=== PATIENT | female | born 1965 | race Caucasian/White ===

== ENCOUNTER 2018-11-16 10:12 | Emergency (ER) | payer BC ==
--- OUTSIDE RECORDS SUMMARY | 2018-11-16 10:18 | XMS REPORT | Continuity of Care Document ---
:1965 External Reference #:[id number] Author Name Yaya Reed M.D. Address [address] [place] [address], [address] [place] [address] Care Team Providers Name Role Phone Yaya Reed M.D. 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 Onset: 07/08/2010 Disorder of skin and/or subcutaneous Yaya Reed M.D. Onset: 2012 tissue Arthralgia of the lower leg Yaya Reed M.D. Onset: 03/12/2013 Cellulitis Yaya Reed M.D. Onset: 04/15/2013 Pulmonary function studies abnormal Yaya Reed M.D. Onset: 2013 Vitamin D deficiency Yaya Reed M.D. Onset: 08/01/2013 Anemia Yaya Reed M.D. Onset: 08/01/2013 Mixed hyperlipidemia Yaya Reed M.D. Onset: 11/06/2013 Iron deficiency anemia Yaya Reed M.D. Onset: 11/06/2013 Asthma without status asthmaticus Yaya Reed M.D. Onset: 11/17/2014 Adult health examination Yaya Reed M.D. Onset: 05/17/2015 Peristomal abscess Yaya Reed M.D. Onset: 05/17/2015 Type II diabetes mellitus uncontrolled Yaya Reed M.D. Onset: 11/17 Mild intermittent asthma Yaya Reed M.D. Onset: 11/17/2016 Mild persistent asthma Yaya Reed M.D. Onset: 03/26/2017 Gastroesophageal reflux disease Yaya Reed M.D. Onset: 09/25/2017 Obstructive sleep apnea syndrome Yaya Reed M.D. 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 Cigarette Use Negative For current cigarette smoker ETOH Use Occasionally consumes alcohol Tobacco Use Start: Unknown End: Unknown Patient is a former smoker Smoking Status Reviewed: 11/13/18 Patient is a former smoker Allergies, Adverse Reactions, Alerts Active Allergies Reaction Severity Comments Date Keflex 08/26/2004 Alleve 08/26/2004 Tape 08/28/2014 Bactrim Severe rash and facial swelling 12/23/2014 Bacitracin Angioedema 12/29/2014 sulfa Anaphylaxis Severe 05/17/2015 Contrast Dye Hives 05/29/2018 Medications Active Medications SIG Qnty Indications Ordering Date Provider Furosemide take one tablet 90tabs Yaya Cuevas 09/27/2018 20mg Tablets by mouth every Sal Reed day Tradjenta by mouth every 90tabs E11.65 Yaya Cuevas 08/28/2018 5mg Tablets day Sal Reed Spiriva Handihaler inhale the 1caps Yaya Cuevas 09/25/2017 18mcg contents of 1 Sal Reed Capsules capsule daily Omeprazole take one capsule 90caps CONSTANCE Corona 05/05/2016 20mg Capsules by mouth every DR day Ferocon Take 2 Capsules 180caps Yaya Cuevas 12/08/2015 Capsules By Mouth Once Sal Reed Daily Epipen 2-Miguel as directed 2units Yaya Cuevas 04/27/2015 0.3mg/0.3ML Sal Reed Solution Auto-Inject Zofran one tab by mouth 60tabs Yaya Cuevas 09/02/2014 8mg Tablets every 8 hours as Sal Reed needed nausea Simvastatin take 1 tablet by 90tabs Yaya Cuevas 05/08/2014 40mg Tablets mouth once daily Sal Reed Valacyclovir HCL take 2 tablets 30tabs Leroy Yusuf, 02/13/2014 1gm by mouth at [facility] M.Bozena Tablets of cold sore and repeat dose in 12 hours take only 2 doses with each outbreak Metformin HCL take two tablets 360tabs Yaya Cuevas 06/06/2013 500mg by mouth twice a Sal Reed Tablets day Baclofen take one tablet 20tabs R25.2 Yaya Cuevas 01/21/2013 10mg Tablets by mouth every Sal Reed day at bedtime Multivitamins 1 PO qd Matthew 08/09/2006 Munira Walker M.D. Tylenal Extra Strenth 2 po qd prn Unknown Tablets Zyflo CR take 1 tablet Unknown 600mg Tablets ER bid 12HR Dulera 1 puff twice a Unknown 200-5mcg/Act day , rinse Aerosol mouth with water after each use Proair HFA 2 puffs qid/prn Unknown 108(90Base) sob or wheeze mcg/Act Aerosol [place] Allergy 1 by mouth every Unknown 180mg day Tablets Ibgard Unknown 90mg Capsules ER History Medications Breo Ellipta 1 inhalation 60units Anne Razo 07/17/2018 - everyday [place], [facility] 11/13/2018 100-25mcg/Inh Aerosol Prednisone 1 tab by mouth 13 3tabs Anne Razo 06/14/2018 - 50mg Tablets hours prior to [place], [employer] 11/13/2018 procedure, then 1 tab by mouth 7 hours prior to procedure, then 1 tab by mouth 1 hour prior to procedure Prednisone 3 tabs po daily qs Yaya Cuevas 05/16/2018 - 20mg Tablets x3 days then 2 Childres, M.D. 06/14/2018 tabs po daily x3 days then 1 tab po daily x3 days then 1/2 tab po qd for 3 days then d/c Levofloxacin 1 by mouth every 5tabs Anne Razo 05/16/2018 - 750mg day x5 days DipAMELIE goetz 07/01/2018 Tablets Nitrofurantoin 1 by mouth twice 14caps Yaya Cuevas 09/27/2017 - Macrocrystal a day Sal Reed 05/16/2018 100mg Capsules Lasix 1 by mouth every 90tabs Yaya Cuevas 09/25/2017 - 20mg Tablets day Sal Reed 09/27/2018 Dulera 2 puff twice a Samp Yaya Cuevas 09/15/2015 - ? Aerosol day Sal Reed 09/24/2017 Cipro 1 by mouth twice 20tabs Yaya Cuevas 05/17/2015 - 500mg Tablets a day x 10 days Sal Reed 09/15/2015 Januvia take 1 tablet by 90tabs E11.65 Yaya Cuevas 05/17/2015 - 100mg Tablets mouth once daily Sal Reed 08/28/2018 Ibuprofen Take 1 Tablet By 90tabs Yaya Cuevas 02/17/2015 - 600mg Tablets Mouth Every 6 Sal Reed 09/15/2015 Hours as Needed For Pain Take With Food Prednisone 60mg po qd x3days qs Yaya Cuevas 12/23/2014 - 10mg Tablets then 40mg po qd Sal Reed 05/16/2015 x3days then 20mg po qd x3days then 10mg po qd x3days then d/c. Levaquin 1 by mouth every 10tabs 682.9 Yaya Cuevas 12/18/2014 - 750mg Tablets day Sal Reed 05/16/2015 Ferocon Take 2 Capsules 60caps Yaya Cuevas 11/09/2014 - Capsules By Mouth Daily Sal Reed 09/15/2015 Nystatin swish and swallow qs Yaya Cuevas 09/09/2014 - 351604Llqt/ML 500,000units 4 Sal Reed 09/15/2015 Suspension times a day for 10 days. dispense 10 day supply Fluconazole 1 by mouth once. 2tabs Yaya Cuevas 09/02/2014 - 150mg May repeat dose Sal Reed 09/15/2015 Tablets if needed after treatment with abx. Levaquin 1 by mouth every 10tabs Yaya Cuevas 08/31/2014 - 750mg Tablets day Sal Reed 05/16/2015 Doxycycline Hyclate 1 by mouth twice 20caps 682.9 Yaya Cuevas 08/28/2014 - a day Sal Reed 05/16/2015 100mg Capsules Bactrim DS 1 by mouth twice 20tabs 682.9 Yaya Cuevas 08/28/2014 - 800-160mg a day Sal Reed 12/23/2014 Tablets Prednisone 40mg po qd x3days qs Yaya Cuevas 08/28/2014 - 10mg Tablets then 30mg po qd Sal Reed 05/16/2015 x3days then 20mg po qd x3days then 10mg po qd x3days then d/c Prednisone 40mg po qd x3days qs Yaya Cuevas 08/12/2014 - 10mg Tablets then 30mg po qd Sal Reed 08/28/2014 x3days then 20mg po qd x3days then 10mg po qd x3days then d/c Lidocaine on for 12 180units Yaya Cuevas 05/08/2014 - 5% Patches hours/off for 12 Sal Reed 05/16/2018 hours apply to each knee Proair HFA 2 puffs qid/prn 1units Yaya Cuevas 05/08/2014 - 108(90Base) sob or wheeze Sal Reed 09/15/2015 mcg/Act Aerosol Nucynta ER 1 and one half 90tabs Kaila Luna, 11/06/2013 - 50mg Tablets tabs by mouth RN, [employer] 05/16/2018 ER 12HR twice a day as needed for pain when due #[id number] Feracon 2 tabs every day 60units Yaya Cuevas 08/25/2013 - OTC Sal Reed 03/15/2016 Simvastatin Take One Tablet 30tabs Pedro Luis Jett, 08/25/2013 - 20mg By Mouth Every R.N., A.N.P. 05/08/2014 Tablets Day Diflucan 1 by mouth every 2tabs Yaya Cuevas 04/22/2013 - 150mg Tablets day Sal Reed 08/01/2013 Augmentin 1 po bid 20tabs Yaya Cuevas 04/18/2013 - Tablets Sal Reed 08/01/2013 Amoxicillin/Clavulana 1 by mouth twice 20tabs 709.9 Yaya Cuevas 03/12/2013 - te Potassium a day Sal Reed 04/15/2013 875-125mg Tablets Ventolin HFA Inhale 2 Puffs 18units 493.90 Yaya Cuevas 07/19/2012 - Four Times Daily Sal Reed 05/08/2014 108(90Base) mcg/Act as Needed Aerosol Doxycycline Hyclate 1 po bid 20caps 707.8 Matthew 05/03/2012 - Sal Walker 01/21/2013 100mg Capsules Albuterol Sulfate inhale the 50units 493.90 Matthew 10/03/2011 - contents of 1 Sal Walker 07/19/2012 (2.5mg/3ML) 0.083% vial via Nebulizer nebulizer four times a day as needed Vitamin D 1 po q wk x 8 8caps 268.9 Matthew 03/28/2011 - 86758Dyjy wks, then repeat Sal Walker 05/23/2011 Capsules lab work 2 wks after finishing. Astepro 1 intranasal bid 2units 465.9 Matthew 03/20/2011 - 0.15% Solution Sal Walker 03/12/2013 Nucynta by mouth three 30tabs 726.19 Matthew 02/06/2011 - 50mg Tablets times a day as Sal Walker 05/03/2012 needed Foltrin 1 by mouth twice 60caps 285.9 Pedro Luis Jett, 12/30/2010 - Capsules a day R.N.,A.N.P. 05/08/2014 Clarithromycin ER 2 po qd 14tabs 465.9 Pedro Luis Jett, 12/29/2010 - 500mg R.N.,A.N.P. 01/05/2011 Tablets ER 24HR Glumetza Take 1 Tablet By 30tabs [facility] 10/27/2010 - 500mg Tablets Mouth Daily Sal Walker 06/06/2013 ER 24HR Zolpidem Tartrate 1 po qhs prn 30tabs 780.52 [facility] 10/05/2010 - 5mg Sal Walker 05/08/2014 Tablets Vitamin D 1 po q wk x 8 8caps [facility] 08/05/2009 - 18151Pcqe wks,then repeat Sal Walker 12/02/2009 Capsules bloodwork Albuterol HFA Inhaler 2 puffs qid prn 1units 493.90 Matthew 07/20/2009 - Sal Walker 05/08/2014 Zithromax Z-Miguel 2 po today then 1 6tabs 461.0 [facility] 03/23/2009 - 250mg po qd Sal Walker 07/20/2009 Tablets Fortamet 1 po qd 30tabs [facility] 07/13/2008 - 500mg Tablets Sal Walker 02/06/2011 ER 24HR Biaxin XL 2 po qd 20tabs Erica AIvan 02/27/2008 - 500mg Tablets Sal Robins 07/09/2008 ER 24HR Phenergan/Codeine 5 cc po q 4 hours 120cc Erica A. 02/27/2008 - 100ml prn cough Sal Robins 07/09/2008 Syrup Vitamin D 1 po q wk x 8 8caps [facility] 11/26/2007 - 44288Knan wks,then repeat Sal Walker 07/20/2009 Capsules bloodwork Calcium/Vitamin-D 1 PO tid [facility] 08/09/2006 - 500MG Sal Walker 11/13/2018 Vitamin-B12 1 PO qd [facility] 08/09/2006 - Sal Walker 02/06/2011 Anusol HC 1 pr bid prn 10units [facility] 01/30/2006 - 25mg Sal Walker 06/13/2007 Suppositor Metformin 1 po bid 60tabs 250.00 [facility] 11/07/2004 - 1,000mg Sal Walker 12/25/2006 Tablets Avandia 1 po qd 30tabs [facility] 11/07/2004 - 4mg Tablets Sal Walker 01/30/2006 Ascensia Breeze 1units 250.00 Pedro Luis Jett, 11/01/2004 - Glucometer R.N.,A.N.P. 02/27/2008 Ascencia Microlet qd Uad 100units 250.00 Pedro Luis Jett, 11/01/2004 - Lancets R.N.,A.N.P. 02/27/2008 Acensia Autodisc Test 1 qd and prn 5units 250.00 Pedro Luis Jett, 11/01/2004 - Strip Disc R.N.,A.N.P. 02/27/2008 Avandamet 1 po bid 60tabs 250.00 Pedro Luis Johnie, 11/01/2004 - 1,000mg;2 mg R.N.,A.N.P. 11/07/2004 Tablets Glucophage 1 po bid 60tabs 250.00 Matthew 10/11/2004 - 1000mg Sal Walker 11/01/2004 Tablets Diflucan 1 po x1 1tabs Matthew 09/01/2004 - 150mg Tablets Sal Walker 10/11/2004 Glucophage 1 po bid 60tabs Matthew 08/26/2004 - 850mg Sal Walker 10/11/2004 Tablets Glucotrol XL 1 po qd 30tabs 250.00 Matthew 08/26/2004 - 5mg Sal Walker 01/30/2006 Tablets Celebrex 1 po qd 90tabs Matthew 08/26/2004 - 200mg Tablets Sal Walker 10/11/2004 Sudafed 2 PO Q6H prn Matthew 08/26/2004 - 30mg Tablets Sal Walkre 11/13/2018 Tylenol 2 Tablets prn Matthew 08/26/2004 - 500mg Tablets Sal Walker 07/20/2009 Tylenol-PM 1 or 2 po hs prn Matthew 08/26/2004 - Sal Walker 12/20/2004 Tylenol Arthritis prn Matthew 08/26/2004 - 650mg Sal Walker 10/03/2011 Caplets Benadryl 1 PO Q 6 HR prn 60caps Unknown - 50mg Capsules 12/25/2006 Mobic 1-2 po qd prn 30tabs Pietropaoli, - 7.5mg Tablets Sal Clinton 08/09/2006 Trinsicon 1 PO qd 30caps Unknown - 12/25/2006 240mg;15McG;110McG;7 Capsules Darvocet-N 100 1 PO Q 4 HRS prn 60tabs Unknown - 100 10/05/2010 Tablets Nysinta Veblen,Canelo - [employer] TECHNICIAN 03/20/2011 Flexeril 1 po tid prn 60tabs Unknown - 10mg Tablets 05/03/2012 Medications Administered in Office Medication SIG Qnty Indications Ordering Provider Date Admin Of Vaccine,One Vaccine Injection/BP Schedule 03/15/2016 Injection Vitamin B12 Injection, NDC Injection/BP Schedule 01/23/2011 18442-188-89, 1 ML Injection Vitamin B12 Injection, NDC Injection/BP Schedule 01/16/2011 11557-161-04, 1 ML Injection Vitamin B12 Injection, NDC Injection/BP Schedule 01/09/2011 09586-167-41, 1 ML Injection Vitamin B12 Injection, NDC Injection/BP Schedule 01/02/2011 76972-546-52, 1 ML Injection Immunizations CPT Code Status Date Vaccine Lot # [id number] Given 03/15/2016 Fluvirin 0.5 ML,[facility] 18959-477-28 [id number] Given 03/15/2016 Fluvirin 0.5 ML,[facility] 04479-326-24 [id number] Vital Signs Date Vital Result Comment 11/13/2018 3:30pm Weight 258.00 lb Height 57.75 inches 4'9.75" BP Systolic 110 mmHg BP Diastolic 68 mmHg Heart Rate 100 /min Respiratory Rate 18 /min BMI (Body Mass Index) 54.4 kg/m2 05/29/2018 3:26pm Weight 258.00 lb Height 57.75 inches 4'9.75" BP Systolic 128 mmHg BP Diastolic 68 mmHg Body Temperature 97.3 F Heart Rate 101 /min O2 % BldC Oximetry 98 % Respiratory Rate 20 /min BMI (Body Mass Index) 54.4 kg/m2 05/16/2018 3:12pm Weight 248.00 lb Height 57.75 inches 4'9.75" BP Systolic 130 mmHg BP Diastolic 88 mmHg Heart Rate 100 /min Respiratory Rate 18 /min BMI (Body Mass Index) 52.3 kg/m2 09/25/2017 2:01pm Weight 251.00 lb Height 57.75 inches 4'9.75" BP Systolic 122 mmHg BP Diastolic 70 mmHg Heart Rate 80 /min Respiratory Rate 18 /min BMI (Body Mass Index) 52.9 kg/m2 05/14/2017 4:03pm Weight 229.00 lb Height 57.75 inches 4'9.75" BP Systolic 136 mmHg BP Diastolic 74 mmHg Heart Rate 76 /min Respiratory Rate 18 /min BMI (Body Mass Index) 48.3 kg/m2 03/26/2017 10:19am Weight 240.00 lb Height 57.75 inches 4'9.75" BP Systolic 120 mmHg BP Diastolic 70 mmHg Heart Rate 76 /min Respiratory Rate 18 /min BMI (Body Mass Index) 50.6 kg/m2 11/17/2016 4:32pm Weight 238.00 lb Height 57.75 inches 4'9.75" BP Systolic 118 mmHg BP Diastolic 70 mmHg Heart Rate 84 /min BMI (Body Mass Index) 50.2 kg/m2 03/15/2016 3:53pm Weight 227.00 lb Height 57.75 inches 4'9.75" BP Systolic 124 mmHg BP Diastolic 70 mmHg Heart Rate 94 /min BMI (Body Mass Index) 47.8 kg/m2 09/15/2015 3:18pm Weight 244.00 lb Height 57.75 inches 4'9.75" BP Systolic 118 mmHg BP Diastolic 74 mmHg Heart Rate 88 /min BMI (Body Mass Index) 51.4 kg/m2 05/17/2015 3:23pm Weight 240.00 lb Height 57.75 inches 4'9.75" BP Systolic 124 mmHg BP Diastolic 78 mmHg Heart Rate 86 /min Respiratory Rate 18 /min BMI (Body Mass Index) 50.6 kg/m2 12/18/2014 11:28am Weight 233.00 lb Height 57.75 inches 4'9.75" BP Systolic 120 mmHg BP Diastolic 76 mmHg Body Temperature 97.7 F Heart Rate 82 /min O2 % BldC Oximetry 98 % Respiratory Rate 18 /min BMI (Body Mass Index) 49.1 kg/m2 11/17/2014 3:24pm Weight 243.00 lb Height 57.75 inches 4'9.75" BP Systolic 132 mmHg BP Diastolic 74 mmHg Heart Rate 98 /min O2 % BldC Oximetry 99 % Respiratory Rate 16 /min BMI (Body Mass Index) 51.2 kg/m2 08/28/2014 1:49pm Weight 242.00 lb Height 57.75 inches 4'9.75" BP Systolic 130 mmHg BP Diastolic 62 mmHg Body Temperature 97.7 F left ear Heart Rate 124 /min O2 % BldC Oximetry 98 % BMI (Body Mass Index) 51.0 kg/m2 05/08/2014 2:26pm Weight 239.00 lb Height 57.75 inches 4'9.75" BP Systolic 126 mmHg BP Diastolic 80 mmHg Heart Rate 82 /min BMI (Body Mass Index) 50.4 kg/m2 11/06/2013 2:28pm Weight 232.00 lb Height 57.75 inches 4'9.75" BP Systolic 116 mmHg BP Diastolic 70 mmHg Heart Rate 80 /min BMI (Body Mass Index) 48.9 kg/m2 08/01/2013 4:30pm Weight 227.00 lb Height 57.75 inches 4'9.75" BP Systolic 118 mmHg BP Diastolic 68 mmHg Heart Rate 82 /min BMI (Body Mass Index) 47.8 kg/m2 04/18/2013 9:08am Weight 238.00 lb Height 57.75 inches 4'9.75" BP Systolic 110 mmHg BP Diastolic 60 mmHg Body Temperature 97.5 F Heart Rate 86 /min BMI (Body Mass Index) 50.2 kg/m2 04/15/2013 11:18am Weight 233.00 lb BP Systolic 118 mmHg BP Diastolic 76 mmHg Body Temperature 97.3 F Heart Rate 88 /min O2 % BldC Oximetry 98 % 03/12/2013 2:29pm Weight 234.00 lb BP Systolic 114 mmHg BP Diastolic 70 mmHg Body Temperature 98.2 F Heart Rate 88 /min 01/21/2013 4:22pm Weight 238.00 lb BP Systolic 150 mmHg BP Diastolic 82 mmHg Heart Rate 88 /min 05/03/2012 3:59pm Weight 244.00 lb Height 57.75 inches 4'9.75" BP Systolic 138 mmHg BP Diastolic 82 mmHg Body Temperature 97.4 F Heart Rate 82 /min O2 % BldC Oximetry 98 % BMI (Body Mass Index) 51.4 kg/m2 10/03/2011 3:22pm Weight 245.00 lb Height 57.75 inches 4'9.75" BP Systolic 122 mmHg BP Diastolic 82 mmHg Heart Rate 96 /min BMI (Body Mass Index) 51.6 kg/m2 03/20/2011 3:52pm Weight 236.00 lb Height 57.75 inches 4'9.75" BP Systolic 124 mmHg BP Diastolic 82 mmHg Heart Rate 68 /min BMI (Body Mass Index) 49.7 kg/m2 02/06/2011 4:28pm Weight 230.00 lb Height 57.75 inches 4'9.75" BP Systolic 130 mmHg BP Diastolic 80 mmHg Heart Rate 80 /min BMI (Body Mass Index) 48.5 kg/m2 12/29/2010 2:52pm Weight 238.00 lb Height 57.75 inches 4'9.75" BP Systolic 132 mmHg BP Diastolic 82 mmHg Heart Rate 86 /min BMI (Body Mass Index) 50.2 kg/m2 10/05/2010 3:55pm Weight 236.00 lb Height 57.75 inches 4'9.75" BP Systolic 130 mmHg BP Diastolic 60 mmHg Heart Rate 72 /min BMI (Body Mass Index) 49.7 kg/m2 07/08/2010 4:24pm Weight 233.00 lb BP Systolic 120 mmHg BP Diastolic 70 mmHg Heart Rate 76 /min 12/02/2009 4:27pm Weight 267.00 lb Height 57.75 inches 4'9.75" BP Systolic 130 mmHg BP Diastolic 80 mmHg Heart Rate 76 /min BMI (Body Mass Index) 56.3 kg/m2 07/20/2009 4:20pm Weight 265.00 lb BP Systolic 140 mmHg BP Diastolic 80 mmHg Heart Rate 76 /min 03/23/2009 4:19pm Weight 264.00 lb BP Systolic 120 mmHg BP Diastolic 80 mmHg Body Temperature 97.4 F Heart Rate 72 /min 11/05/2008 4:05pm Weight 264.00 lb BP Systolic 132 mmHg Large Cuff BP Diastolic 80 mmHg Large Cuff Heart Rate 68 /min 07/09/2008 3:36pm Weight 266.00 lb BP Systolic 142 mmHg BP Diastolic 72 mmHg Heart Rate 80 /min Respiratory Rate 20 /min BMI (Body Mass Index) 9.3 kg/m2 04/08/2008 4:05pm Weight 264.00 lb Height 59 inches 4'11" BP Systolic 150 mmHg BP Diastolic 70 mmHg Heart Rate 80 /min BMI (Body Mass Index) 53.3 kg/m2 02/27/2008 4:05pm Weight 262.00 lb Height 59 inches 4'11" BP Systolic 122 mmHg BP Diastolic 84 mmHg Heart Rate 88 /min BMI (Body Mass Index) 52.9 kg/m2 12/04/2007 4:02pm Weight 266.38 lb Height 59 inches 4'11" BP Systolic 130 mmHg BP Diastolic 90 mmHg Heart Rate 72 /min BMI (Body Mass Index) 53.8 kg/m2 09/04/2007 3:28pm Weight 269.00 lb Height 59 inches 4'11" BP Systolic 120 mmHg BP Diastolic 80 mmHg Heart Rate 84 /min BMI (Body Mass Index) 54.3 kg/m2 06/13/2007 4:11pm Weight 262.00 lb Height 59 inches 4'11" BP Systolic 130 mmHg BP Diastolic 80 mmHg Heart Rate 72 /min BMI (Body Mass Index) 52.9 kg/m2 12/25/2006 4:05pm Weight 259.00 lb Height 59 inches 4'11" BP Systolic 130 mmHg BP Diastolic 80 mmHg Heart Rate 84 /min BMI (Body Mass Index) 52.3 kg/m2 08/09/2006 4:01pm Weight 271.00 lb Height 59 inches 4'11" BP Systolic 138 mmHg BP Diastolic 72 mmHg Heart Rate 86 /min BMI (Body Mass Index) 54.7 kg/m2 05/08/2006 4:05pm Weight 293.00 lb Height 59 inches 4'11" BP Systolic 130 mmHg BP Diastolic 90 mmHg Heart Rate 88 /min BMI (Body Mass Index) 59.2 kg/m2 01/30/2006 3:51pm Weight 317.00 lb Height 59 inches 4'11" BP Systolic 130 mmHg BP Diastolic 80 mmHg Heart Rate 88 /min BMI (Body Mass Index) 64.0 kg/m2 10/30/2005 4:48pm Height 59 inches 4'11" BP Systolic 136 mmHg BP Diastolic 80 mmHg Heart Rate 114 /min O2 % BldC Oximetry 97 % 06/19/2005 11:56am Weight 366.00 lb Height 59 inches 4'11" BP Systolic 150 mmHg BP Diastolic 80 mmHg Heart Rate 88 /min BMI (Body Mass Index) 73.9 kg/m2 03/21/2005 4:16pm Height 59 inches 4'11" BP Systolic 154 mmHg BP Diastolic 88 mmHg Heart Rate 98 /min 12/20/2004 2:51pm Weight 359.00 lb Height 59 inches 4'11" BP Systolic 134 mmHg BP Diastolic 70 mmHg Heart Rate 72 /min BMI (Body Mass Index) 72.5 kg/m2 11/01/2004 3:30pm BP Systolic 134 mmHg BP Diastolic 78 mmHg Heart Rate 84 /min 10/11/2004 4:14pm Weight 350.00 lb BP Systolic 146 mmHg BP Diastolic 80 mmHg Heart Rate 96 /min 08/26/2004 4:01pm Weight 352.00 lb BP Systolic 160 mmHg BP Diastolic 84 mmHg Results Test Date Facility Test Result H/L Range Note CBC 05/16/2018 [facility] WBC 9.0 10^3/uL 4.8-10.[address] [place] [address] [phone] RBC 4.09 10^6/uL Low 4.2-6.1 HGB 12.0 g/dL 12.0-18.0 HCT 37.9 % 37-52 MCV 92.6 fL 80.0-99.9 MCH 29.3 pg 26.0-32.0 MCHC 31.7 g/dL 31.0-36.0 RDW 13.50 % 11.0-15.0 MPV 6.2 fL Low 7.4-10.4 Platelets 410 10^3/uL High 130-400 Auto Diff 05/16/2018 [facility] Lymphocytes % 20.40 % Low 20.5-51.[address] [place] [address] [phone] Monocytes % 7.00 % 1.7-9.3 Granulocyte % 72.6 % 42.2-75.2 Lymphocytes # 1.8 10^3/uL 0.6-4.1 Monocytes # 0.6 10^3/uL 0.0-1.8 Granulocyte # 6.5 10^3/uL 2.0-7.8 Comp. Metabolic 05/16/2018 [facility] Glucose 167.8 mg/dL High 65-[address] [place] [address] [phone] BUN 20.3 mg/dL 7-21 Co2 21.8 mmol/L Low 22-30 Sodium 141 mmol/L 137-145 Potassium 4.9 mmol/L 3.6-5.2 Chloride 105 mmol/L 98-110 Calcium 9.8 mg/dL 9-10.8 Creatinine 0.91 mg/dL 0.52-1.25 eGFR (Female) >60 1 Total Protein 6.88 g/dL 6.3-8.2 Albumin 3.71 g/dL 3.3-4.50 Sgot (Ast) 31.0 U/L 5-40 Alk Phosphatase 100.0 U/L 38-126 Total Bilirubin 0.41 mg/dL 0.2-1.3 SGPT (Alt) 59.0 U/L High 7-56 Anion Gap (Calc) 14.2 7-16 BUN/Crea Ratio 22.3 Ratio 7-25 Globulin (Calc) 3.17 g/dL 2.3-3.5 A/G Ratio (Calc) 1.2 Ratio 1.1-2.2 Lipid Studies 05/16/2018 [facility] Triglycerides 120 mg/dL 0-[address] [address] [phone] Cholesterol 168 mg/dL 120-200 HDL Cholesterol 101.0 mg/dL High 40-60 VLDL (Calc.) 24 mg/dL <31 Cholesterol/HDL 1.66 Ratio <5.00 LDL (Calc.) 43 mg/dL 0-99 2 Laboratory test 05/16/2018 [facility] %A1c 7.7 % High 4.8- 6.0 finding [address] [address] [phone] Lipid Studies 05/14/2017 [facility] Triglycerides 87 mg/dL 0-[address] [address] [phone] Cholesterol 111 mg/dL Low 120-200 HDL Cholesterol 71.0 mg/dL High 40-60 VLDL (Calc.) 17 mg/dL <31 Cholesterol/HDL 1.56 Ratio <5.00 LDL (Calc.) 23 mg/dL 0-99 3 Comp. Metabolic 05/14/2017 [facility] Glucose 122.5 mg/dL High 65-[address] [address] [phone] BUN 20.4 mg/dL 7-21 Co2 21.5 mmol/L Low 22-30 Sodium 140 mmol/L 137-145 Potassium 4.0 mmol/L 3.6-5.2 Chloride 106 mmol/L 98-110 Calcium 8.6 mg/dL Low 9-10.5 Creatinine 0.94 mg/dL 0.52-1.25 eGFR (Female) >60 4 Total Protein 6.05 g/dL Low 6.3-8.2 Albumin 2.54 g/dL Low 3.3-4.50 Sgot (Ast) 11.0 U/L 5-40 Alk Phosphatase 129.0 U/L High 38-126 Total Bilirubin 0.30 mg/dL 0.2-1.3 SGPT (Alt) 17.0 U/L 7-56 Anion Gap (Calc) 12.5 7-16 BUN/Crea Ratio 21.7 Ratio 7-25 Globulin (Calc) 3.51 g/dL High 2.3-3.5 A/G Ratio (Calc) 0.7 Ratio Low 1.1-2.2 CBC 05/14/2017 [facility] WBC 7.9 10^3/uL 4.8-10.[address] [place] [phone] RBC 3.50 10^6/uL Low 4.2-6.1 HGB 10.6 g/dL Low 12.0-18.0 HCT 33.8 % Low 37-52 MCV 96.6 fL 80.0-99.9 MCH 30.3 pg 26.0-32.0 MCHC 31.4 g/dL 31.0-36.0 RDW 12.50 % 11.0-15.0 MPV 6.4 fL Low 7.4-10.4 Platelets 415 10^3/uL High 130-400 Auto Diff 05/14/2017 [facility] Lymphocytes % 33.60 % 20.5- 51.[address] [place] [address] [phone] Monocytes % 13.20 % High 1.7-9.3 Granulocyte % 53.2 % 42.2-75.2 Lymphocytes # 2.7 10^3/uL 0.6-4.1 Monocytes # 1.0 10^3/uL 0.0-1.8 Granulocyte # 4.2 10^3/uL 2.0-7.8 Laboratory test finding 05/14/2017 [facility] %A1c 6.0 % 4.8-6.0 [address] [facility] [place] [address] [place] [address] [phone] CBC W/Auto Differential 11/18/2016 [facility] WBC 7.4 K/uL 4.8-10.8 [address] [place] [address] [phone] RBC 3.80 M/uL Low 4.20-5.40 Hemoglobin 11.7 gm/dL Low 12.0-16.0 Hematocrit 36.0 % 36.0-48.0 MCV 94.8 fL 80.0-100.0 MCHC 32.5 % 30.0-36.5 MCH 30.8 pg 27.0-34.0 RDW 12.8 % 11.0-15.0 Platelet 293 K/uL 130-450 MPV 6.7 fL 6.0-12.0 NE% 59 % 37-80 Ly% 28 % 10-50 Mo% 11 % 0-12 Eo% 1 % <=8 Ba% 1 % <=3 NE# 4.4 K/uL 1.8-8.6 Lymph# 2.1 K/uL 0.5-5.0 Harlan# 0.8 K/uL 0.0-1.3 Eos# 0.0 K/uL 0.0-0.9 Baso# 0.1 K/ul 0.0-0.3 Laboratory test 11/18/2016 [facility] A1c 6.2 % High 4.8- 6.0 finding 17 [place], [place] [id number] [phone] Lipid Panel 11/18/2016 [facility] Cholesterol 133 mg/dL 120-200 17 [place], [place] [id number] [phone] Triglycerides 85 mg/dL 0-149 HDL Cholesterol 76 mg/dL High 40-60 Chol/HDL Ratio 1.8 <=4.4 5 LDL Direct 34 mg/dL 0-99 VLDL Calculated 17 Comprehensive Panel 11/18/2016 [facility] Sodium 142 mmol/L 136-145 17 [place], [place] [id number] [phone] Potassium 4.2 mmol/L 3.5-5.2 Chloride 109 mmol/L High 100-108 Co2 23 mmol/L 21-32 Glucose 118 mg/dL High 70-100 BUN 13 mg/dL 7-21 Creatinine 0.7 mg/dL 0.6-1.3 6 Calcium 8.7 mg/dL 8.5-10.8 GFR >60 T Bili 0.5 mg/dL 0.0-1.2 T Protein 6.2 gm/dL Low 6.4-8.2 Albumin 3.7 gm/dL 3.4-4.8 Alk Phos 87 U/L 40-150 Alt (SGPT) 20 U/L 0-55 Ast (Sgot) 16 U/L 5-37 Laboratory test 03/15/2016 [facility] %A1c 6.6 % High 4.2- 5.8 7 finding 77 [facility] 310 [place], [place] [id number] [phone] Laboratory test 09/11/2015 [facility] A1c 6.7 % High 4.8- 6.0 finding 17 [place] [address] [phone] LP (Lipid) 09/11/2015 [facility] Cholesterol 132 mg/dL 120 -200 17 [place] [address] [phone] Triglycerides 137 mg/dL 0-149 HDL Cholesterol 85 mg/dL High 40-60 Chol/HDL Ratio 1.6 <=4.4 8 LDL Direct 30 mg/dL 0-99 VLDL Calculated 27 CMP 09/11/2015 [facility] Sodium 143 mmol/L 136-145 17 [place] [address] [phone] Potassium 4.2 mmol/L 3.6-5.2 Chloride 104 mmol/L 100-108 Co2 30 mmol/L 21-32 Glucose 119 mg/dL High 70-110 9 BUN 17 mg/dL 7-21 Creatinine 0.7 mg/dL 0.6-1.3 10 Calcium 8.7 mg/dL 8.5-10.8 GFR >60 T Bili 0.3 mg/dL 0.0-1.0 T Protein 6.8 gm/dL 6.4-8.2 Albumin 3.5 gm/dL 3.4-4.8 Alk Phos 94 U/L 50-136 Alt (SGPT) 35 U/L 12-78 Ast (Sgot) 23 U/L 15-37 CMP 05/16/2015 [facility] Sodium 140 mmol/L 136-145 17 [place] [address] [phone] Potassium 4.3 mmol/L 3.6-5.2 Chloride 103 mmol/L 100-108 Co2 28 mmol/L 21-32 Glucose 107 mg/dL 70-110 11 BUN 15 mg/dL 7-21 Creatinine 0.8 mg/dL 0.6-1.3 12 Calcium 8.7 mg/dL 8.5-10.8 GFR >60 T Bili 0.5 mg/dL 0.0-1.0 T Protein 6.6 gm/dL 6.4-8.2 Albumin 3.4 gm/dL 3.4-4.8 Alk Phos 112 U/L 50-136 Alt (SGPT) 29 U/L 12-78 Ast (Sgot) 17 U/L 15-37 LP (Lipid) 05/16/2015 [facility] Cholesterol 125 mg/dL 120 -200 17 [place] [address] [phone] Triglycerides 163 mg/dL High 0-149 HDL Cholesterol 77 mg/dL High 40-60 Chol/HDL Ratio 1.6 <=4.4 13 LDL Direct 33 mg/dL 0-99 VLDL Calculated 33 Laboratory test 05/16/2015 [facility] A1c 7.4 % High 4.8- 6.0 finding 17 [place] [address] [phone] Culture 12/18/2014 [facility] Culture DIRECT EXAM 14 Luyrf-Uwtvbp-Gabg [address] [place] [phone] Isolate 1 Rare Pseudomonas <SEE NOTE> 15 Ceftazidime 2 S Gentamicin <=1 S Ciprofloxacin <=0.25 S Levofloxacin 0.5 S Culture Wound 08/28/2014 [facility] Culture COMMENTS 16 Superficial 17 [place] [address] [phone] Isolate 1 Rare Pseudomonas <SEE NOTE> 17 Ceftazidime <=1 S Gentamicin <=1 S Ciprofloxacin <=0.25 S Levofloxacin 0.25 S Laboratory test 05/08/2014 [facility] %A1c 7.0 % High 4.2- 5.8 18 finding 77 [facility] 310 [place] [address] [phone] Comp. Metabolic 05/08/2014 [facility] Glucose 133.4 High 65- 110 77 [facility] 310 mg/[place] [address] [phone] BUN 15.4 mg/dL 7-21 Co2 22.5 mmol/L 22-30 Sodium 140 mmol/L 137-145 Potassium 4.8 mmol/L 3.6-5.2 Chloride 108 mmol/L 98-110 Calcium 9.1 mg/dL 9-10.5 Creatinine 0.84 mg/dL 0.52-1.25 Total Protein 6.74 g/dL 6.3-8.2 Albumin 3.52 g/dL 3.3-4.50 Sgot (Ast) 20.0 U/L 5-40 Alk Phosphatase 111.0 U/L 38-126 Total Bilirubin 0.23 mg/dL 0.2-1.3 SGPT (Alt) 26.0 U/L 7-56 Anion Gap (Calc) 9.5 7-16 BUN/Crea Ratio 18.3 Ratio 7-25 Globulin (Calc) 3.22 g/dL 2.3-3.5 A/G Ratio (Calc) 1.1 Ratio 1.1-2.2 Lipid Studies 05/08/2014 [facility] Triglycerides 106 mg/dL 0-[address] [address] [phone] Cholesterol 144 mg/dL 120-200 HDL Cholesterol 66.0 mg/dL High 40-60 VLDL (Calc.) 21 mg/dL <31 Cholesterol/HDL 2.18 Ratio <5.00 LDL (Calc.) 57 mg/dL 0-99 19 Laboratory test 05/08/2014 [facility] eGFR (Female) 76 >59 20 finding [address] [address] [phone] 25 Hydroxy Vit D 08/23/2013 [facility] 25 Hydroxy Vit 25 NG/ ML Low 30-95 @ [address] [place] [phone] [id number] VITAMIN D STATUS <SEE NOTE> 21 Folate & B-12 08/23/2013 [facility] Folate >20.0 ng/mL High 3.1-12.[address] [place] [address] [phone] Vitamin B12 632.0 pg/mL 254.0-1,320.0 Laboratory test 08/23/2013 [facility] A1c 7.3 % High 4.8- 6.0 finding 17 [place], [place] 8254829 [phone] Comprehensive Panel 08/23/2013 [facility] Sodium 139 mmol/L 136-145 17 [place], [place] 6762891 [phone] Potassium 4.3 mmol/L 3.6-5.2 Chloride 106 mmol/L 100-108 Co2 25 mmol/L 21-32 Glucose 113 mg/dL High 70-110 Glu Range Header [place] Jacey <SEE NOTE> 22 BUN 21 mg/dL 7-21 Creatinine 0.7 mg/dL 0.6-1.3 Calcium 9.1 mg/dL 8.5-10.8 GFR >60 GFR Ranges Normal Kidney Fu <SEE NOTE> 23 T Bili 0.4 mg/dL 0.0-1.0 T Protein 7.0 gm/dL 6.4-8.2 Albumin 3.7 gm/dL 3.4-4.8 Alk Phos 139 U/L High 50-136 Alt (SGPT) 31 U/L 12-78 Ast (Sgot) 18 U/L 15-37 Lipid Panel 08/23/2013 [facility] Cholesterol 174 mg/dL 120-200 17 [place], [place] 4179889 [phone] Triglycerides 170 mg/dL High 0-149 HDL Cholesterol 84 mg/dL High 40-60 Chol/HDL Ratio 2.1 Chol/HDL Ranges Cholesterol/HDL <SEE NOTE> 24 LDL Direct 65 mg/dL 0-99 VLDL Calculated 34 Iron Saturation 08/23/2013 [facility] Iron 39 g/dL Low 50 -175 17 [place] [address] [phone] Tibc 413 g/dL High 112-346 Iron Saturation 9 % Low 22-55 CBC W/No Diff 08/23/2013 [facility] WBC 7.5 K/uL 4.8-10.8 17 [place], [place] 9271488 [phone] RBC 4.19 M/uL Low 4.20-5.40 Hemoglobin 11.6 gm/dL Low 12.0-16.0 Hematocrit 36.8 % 36.0-48.0 MCV 87.8 fL 80.0-100.0 MCH 27.6 pg 27.0-34.0 MCHC 31.5 % 30.0-36.5 RDW 13.4 % 11.0-15.0 Platelet 373 K/uL 130-450 MPV 6.9 fL 6.0-12.0 Culture 04/18/2013 [facility] Culture Growth 25 Evltp-Nxbgnt-Qwplufjf 17 [facility] Observ[place] [address] <SEE [phone] NOTE> Culture Observations MRSA screen test <SEE NOTE> 26 Direct Exam WBC's or organis <SEE NOTE> 27 CBC 04/18/2013 [facility] WBC 8.9 10^3/uL 4.8-10.[address] [phone] RBC 3.51 10^6/uL Low 4.2-6.1 HGB 10.6 g/dL Low 12.0-18.0 HCT 31.3 % Low 37-52 MCV 89.2 fL 80.0-99.0 MCH 30.2 pg 27.0-31.0 MCHC 33.9 g/dL 33.0-37.0 RDW 14.30 % 11.0-15.0 MPV 6.8 fL Low 7.4-10.4 Platelets 357 10^3/uL 130-400 Laboratory test finding 05/03/2012 [facility] %A1c 7.2 % High 4.2-5.[address] [address] [phone] eGFR (Female) 71 >59 28 Basic Metabolic 05/03/2012 [facility] Glucose 103.6 mg/dL 65-[address] [address] [phone] BUN 12.7 mg/dL 7-21 Co2 18.0 mEq/L Low 22-30 Sodium 140 mEq/L 137-145 Potassium 4.1 mEq/L 3.6-5.0 Chloride 108 mEq/L High 98-107 Calcium 9.7 mg/dL 9-10.5 Creatinine 0.90 mg/dL 0.52-1.25 Anion Gap (Calc) 14.0 7-16 BUN/Crea Ratio 14.1 Ratio 7-25 Culture 05/03/2012 [facility] Direct Exam WBC's or 29 Bbrth-Syxmso-Mjqboagw 17 [place] [address] <SEE NOTE> [phone] Culture Observations MRSA screen test <SEE NOTE> 30 Isolate 1 Few Pseudomonas <SEE NOTE> 31 Ceftazidime 4 S Gentamicin <=1 S Ciprofloxacin <=0.25 S Levofloxacin 0.5 S Comp. Metabolic 10/03/2011 [facility] Glucose 122.4 mg/dL High 65-[address] [phone] BUN 12.2 mg/dL 7-21 Co2 21.1 mEq/L Low 22-30 Sodium 138 mEq/L 137-145 Potassium 4.5 mEq/L 3.6-5.0 Chloride 108 mEq/L High 98-107 Calcium 9.1 mg/dL 9-10.5 Creatinine 0.74 mg/dL 0.52-1.25 Total Protein 6.97 g/dL 6.3-8.2 Albumin 3.59 g/dL 3.3-4.50 Sgot (Ast) 12.0 IU/L 5-40 Alk Phosphatase 96.0 IU/L 38-126 Total Bilirubin 0.16 mg/dL Low 0.2-1.3 SGPT (Alt) 17.0 IU/L 7-56 Anion Gap (Calc) 8.9 7-16 BUN/Crea Ratio 16.5 Ratio 7-25 Globulin (Calc) 3.38 g/dL 2.3-3.5 A/G Ratio (Calc) 1.1 Ratio 1.1-2.2 Laboratory test finding 10/03/2011 [facility] %A1c 7.1 % High 4.2-5.[address] [id number] [phone] eGFR (Female) 89 >59 32 Laboratory test 06/14/2011 [facility] Vitamin D 32 ng/mL 31 -100 finding [address] [place] [address] [address] [place], [place] 7127213 [phone] Laboratory test 03/20/2011 [facility] Vitamin D 30 ng/mL Low 31-100 finding 77 [address] [address] [address] [place], [place] 2154003 [phone] CBC 03/20/2011 [facility] WBC 7.9 4.8-10.8 77 [facility] 310 10^3/[place] [address] [phone] RBC 4.12 10^6/uL Low 4.2-6.1 HGB 10.8 g/dL Low 12.0-18.0 HCT 34.2 % Low 37-52 MCV 83.2 fL 80.0-99.0 MCH 26.2 pg Low 27.0-31.0 MCHC 31.5 g/dL Low 33.0-37.0 RDW 23.80 % High 11.0-15.0 MPV 7.5 fL 7.4-10.4 Platelets 286 10^3/uL 130-400 Comp. Metabolic 03/20/2011 [facility] Glucose 103.9 mg/dL 65-[address] [place] [address] [phone] BUN 13.9 mg/dL 7-21 Co2 20.8 mEq/L Low 22-30 Sodium 137 mEq/L 137-145 Potassium 4.8 mEq/L 3.6-5.0 Chloride 106 mEq/L 98-107 Calcium 8.5 mg/dL Low 9-10.5 Creatinine 0.73 mg/dL 0.52-1.25 Total Protein 6.09 g/dL Low 6.3-8.2 Albumin 3.23 g/dL Low 3.3-4.50 Sgot (Ast) 20.0 IU/L 5-40 Alk Phosphatase 108.0 IU/L 38-126 Total Bilirubin 0.22 mg/dL 0.2-1.3 SGPT (Alt) 23.0 IU/L 7-56 Anion Gap (Calc) 10.2 7-16 BUN/Crea Ratio 19.0 Ratio 7-25 Globulin (Calc) 2.86 g/dL 2.3-3.5 A/G Ratio (Calc) 1.1 Ratio 1.1-2.2 Laboratory test 03/20/2011 [facility] Magnesium 1.9 mg/dL 1.7-2.[address] [place] [address] [phone] eGFR (Female) 91 >59 33 Laboratory test 03/20/2011 [facility] Lab [place] 79.5 pg/ mL High (12-65) 34 finding 17 [facility] PTH, [place] [address] [phone] Basic Metabolic 02/06/2011 [facility] Glucose 109.5 65-110 77 [facility] 310 mg/[place] [address] [phone] BUN 16.5 mg/dL 7-21 Co2 18.8 mEq/L Low 22-30 Sodium 141 mEq/L 137-145 Potassium 4.5 mEq/L 3.6-5.0 Chloride 107 mEq/L 98-107 Calcium 8.6 mg/dL Low 9-10.5 Creatinine 0.81 mg/dL 0.52-1.25 Anion Gap (Calc) 15.2 7-16 BUN/Crea Ratio 20.4 Ratio 7-25 Laboratory test 02/06/2011 [facility] eGFR (Female) 81 >59 35 finding 77 [facility] 310 [place] [address] [phone] Folate & B-12 02/06/2011 [facility] Folate >20.0 High 3.1- 12.[address] [place] [address] ng/[place] [address] [phone] Vitamin B12 995.0 pg/mL 254.0-1,320.0 CBC Diff 02/06/2011 [facility] WBC 9.1 K/uL 4.8-10.[address] [place] [address] [phone] Red Blood Cell 4.22 M/uL 4.20-5.40 Hemoglobin 10.4 gm/dL Low 12.0-16.0 Hematocrit 31.7 % Low 36.0-48.0 MCV 75.3 fL Low 80.0-100.0 MCHC 32.8 % 30.0-36.5 MCH 24.7 pg Low 27.0-34.0 RDW 20.8 % High 11.0-15.0 Platlet Count 545 K/uL High 130-450 MPV 7.9 fL 6.0-12.0 Neutrophil 55 % 37-80 Lymphocyte 35 % 10-50 Monocyte 9 % 0-12 Eosinophil 0 % <=8 Basophil 1 % <=3 Angela# 5.0 K/uL 1.8-8.6 Lymphocyte # 3.2 K/uL 0.5-5.0 Monocyte # 0.8 K/uL 0.0-1.3 Eosinophil # 0.0 K/uL 0.0-0.9 Basophil # 0.1 K.uL 0.0-0.3 Iron Saturation 12/29/2010 [facility] Iron 13 g/dL Low 50 -175 17 [place], [place] [address]100 [phone] Tibc 414 g/dL High 112-346 Iron Saturation 3 % Low 22-55 Folate & B-12 12/29/2010 [facility] Folate >20.0 ng/mL High 3.1-12.4 17 [place] [address] [phone] Vitamin B12 252.0 pg/mL Low 254.0-1,320.0 Laboratory test 12/29/2010 [facility] eGFR (Female) 86 >59 [address] [place] [address] [phone] Basic Metabolic 12/29/2010 [facility] Glucose 113.7 High 65- [address] [place] [address] 310 mg/dL [place], [place] [address]652111 [phone] BUN 15.8 mg/dL 7-21 Co2 19.9 mEq/L Low 22-30 Sodium 138 mEq/L 137-145 Potassium 4.8 mEq/L 3.6-5.0 Chloride 108 mEq/L High 98-107 Calcium 8.3 mg/dL Low 9-10.5 Creatinine 0.77 mg/dL 0.52-1.25 Anion Gap (Calc) 10.1 7-16 BUN/Crea Ratio 20.5 Ratio 7-25 CBC 12/29/2010 [facility] WBC 6.6 10^3/uL 4.8-10.[address] [place] [address] [phone] RBC 3.48 10^6/uL Low 4.2-6.1 HGB 7.5 g/dL Low 12.0-18.0 HCT 24.5 % Low 37-52 MCV 70.4 fL Low 80.0-99.0 MCH 21.6 pg Low 27.0-31.0 MCHC 30.7 g/dL Low 33.0-37.0 RDW 18.60 % High 11.0-15.0 MPV 6.6 fL Low 7.4-10.4 Platelets 339 10^3/uL 130-400 Laboratory test 09/17/2010 [facility] TSH 2.13 uIU/mL 0.34 -4.82 finding 17 [place] [address] [phone] Basic Metabolic 09/17/2010 [facility] Sodium 142 mmol/L 136-145 Panel 17 [place] [address] [phone] Potassium 4.6 mmol/L 3.6-5.2 Chloride 108 mmol/L 100-108 Carbon Dioxide 22 mmol/L 21-32 Glucose 131 mg/dL High 70-110 Glucose Range Header [employer] [place] Jacey <SEE NOTE> 37 BUN 19 mg/dL 7-21 Creatinine 0.9 mg/dL 0.6-1.3 Calcium 8.8 mg/dL 8.5-10.8 GFR >60 GFR Reference Normal Kidney Fu <SEE NOTE> 38 Laboratory test 09/17/2010 [facility] A1c 6.3 % High 4.8- 6.0 finding 17 [place] [address] [phone] Laboratory test 12/11/2009 [facility] TSH 2.03 0.34-4.82 finding 17 [facility] uIU/[place] [address] [phone] Lipid Panel 12/11/2009 [facility] Cholesterol 159 mg/dL 120-[address] [place] [address] [phone] Triglycerides 103 mg/dL 0-149 High Density Lipoprotein 83 mg/dL High 40-60 Chol/HDL Ratio 1.9 Chol/HDL Reference Cholesterol/HDL <SEE NOTE> 39 LDL Direct 70 mg/dL 0-99 Very Low Density Lipoprotein 21 Comprehensive Panel 12/11/2009 [facility] Sodiuim 140 mmol/L 136-145 17 [place] [address] [phone] Potassium 4.5 mmol/L 3.6-5.2 Chloride 105 mmol/L 100-108 Carbon Dioxide 24 mmol/L 21-32 Glucose 118 mg/dL High 70-110 Glucose Range Header [employer] [place] Jacey <SEE NOTE> 40 BUN 14 mg/dL 7-21 Creatinine 0.6 mg/dL 0.6-1.3 Calcium 8.8 mg/dL 8.5-10.8 GFR >60 GFR Reference Normal Kidney Fu <SEE NOTE> 41 Total Bilirubin 0.30 mg/dL 0.00-1.00 Total Protein 6.2 gm/dL Low 6.4-8.2 Albumin 3.9 gm/dL 3.4-4.8 Alk Phos 96 U/L 50-136 Alt(SGPT) 20 U/L 0-33 Ast (Sgot) 19 U/L 15-37 Laboratory test 12/11/2009 [facility] A1c 6.7 % High 4.8- 6.0 finding 17 [place] [address] [phone] Laboratory test 07/20/2009 [facility] Vitamin D 24 ng/mL Low 31-100 finding 77 [facility] [address] [place] [address] [phone] Basic Metabolic 07/20/2009 [facility] Glucose 118.3 High 65- 110 77 [facility] 310 mg/dL [place], [place] [address]777275 [phone] BUN 16.7 mg/dL 7-21 Co2 19.1 mEq/L Low 22-30 Sodium 142 mEq/L 137-145 Potassium 4.4 mEq/L 3.6-5.0 Chloride 112 mEq/L High 98-107 Calcium 8.6 mg/dL Low 9-10.5 Creatinine 0.76 mg/dL 0.52-1.25 Anion Gap (Calc) 10.9 7-16 BUN/Crea Ratio 22.0 Ratio 7-25 Laboratory test finding 07/20/2009 [facility] %A1c 6.7 % High 4.2-5.[address] [place] [address] [phone] eGFR (Female) 87 >59 42 Basic Metabolic 04/03/2009 [facility] Glucose 101 mg/dL ( 70-110) 43 Panel 17 [place] [address] [phone] BUN 11 mg/dL (7-21) Creatinine 0.6 mg/dL (0.6-1.3) Calcium 9.3 mg/dL (8.5-10.5) Sodium 138 mmol/L (136-145) Potassium 4.3 mmol/L (3.6-5.2) Chloride 103 mmol/L (100-108) Co2 27 mmol/L (21-32) GFR >90 ML/MIN/1.73M2 (>59) 44 GFR ( Amer) >90 ML/MIN/1.73M2 (>59) 45 GFR Interpretation <SEE NOTE> 46 Glycated 04/03/2009 [facility] A1c 6.63 % High (4.80-6.00) 47 Hemoglobin 17 [place] [address] [phone] Vitamid D,25 04/03/2009 [facility] 25 Hydroxy 20 NG/ML Low (31-100) 48 Hydroxy 17 [facility] Vit D @ [place] [address] [phone] Laboratory test 01/22/2009 [facility] Vitamin D 29 ng/mL Low 31-100 finding 77 [facility] [address] [place], [place] 9666674 [phone] Laboratory test 11/05/2008 [facility] Vitamin D 24 ng/mL Low 31-100 finding 77 [facility] [address] [place], [place] 5052832 [phone] Laboratory test 11/05/2008 [facility] %A1c 6.7 % High 4.2- 5.8 finding [address] [address] [phone] Basic Metabolic 11/05/2008 [facility] Glucose 146.0 High 65- 110 77 [facility] 310 mg/[place] [address] [phone] BUN 17.0 mg/dL 7-21 Co2 23.0 mEq/L 22-30 Sodium 138 mEq/L 137-145 Potassium 4.8 mEq/L 3.6-5.0 Chloride 108 mEq/L High 98-107 Calcium 8.5 mg/dL Low 9-10.5 Creatinine 0.70 mg/dL 0.52-1.25 Anion Gap (Calc) 7.0 7-16 BUN/Crea Ratio 24.3 Ratio 7-25 Laboratory test 07/09/2008 [facility] 25 Hydroxy 29 NG/ML Low (31-100) 49 finding 17 [facility] Vit [place] @ [place] [address] [phone] Laboratory test 07/09/2008 [facility] %A1c 6.5 % High 4.2- 5.8 finding 77 [facility] 310 [place], [place] 3488209 [phone] Basic Metabolic 07/09/2008 [facility] Glucose 112.0 High 65- 110 77 [facility] 310 mg/dL [place], [place] 4897324 [phone] BUN 14.0 mg/dL 7-21 Co2 26.0 mEq/L 22-30 Sodium 142 mEq/L 137-145 Potassium 4.3 mEq/L 3.6-5.0 Chloride 105 mEq/L 98-107 Calcium 8.8 mg/dL Low 9-10.5 Creatinine 0.80 mg/dL 0.52-1.25 Anion Gap (Calc) 11.0 7-16 BUN/Crea Ratio 17.5 Ratio 12-19 Laboratory test 04/08/2008 [facility] 25 Hydroxy 19 NG/ML Low (31-100) 50 finding 17 [facility] [place] @ [place] [address] [phone] Intact PTH 71.7 pg/mL High (10-69) 51 Basic Metabolic 04/08/2008 [facility] Glucose 101.0 mg/dL 65-110 77 [facility] 310 [place] [address] [phone] BUN 10.0 mg/dL 7-21 Co2 25.0 mEq/L 22-30 Sodium 140 mEq/L 137-145 Potassium 4.1 mEq/L 3.6-5.0 Chloride 107 mEq/L 98-107 Calcium 8.6 mg/dL Low 9-10.5 Creatinine 0.60 mg/dL 0.52-1.25 Anion Gap (Calc) 8.0 7-16 BUN/Crea Ratio 16.7 Ratio 12-19 Laboratory test 04/08/2008 [facility] %A1c 6.2 % High 4.2- 5.8 finding [address] [address] [phone] Laboratory test 01/16/2008 [facility] Intact PTH 75.4 High (10-69) 52 finding 17 [facility] pg/[place] [address] [phone] Iron Panel 01/16/2008 [facility] Iron 22 g/dL Low (35-150 ) 17 [place], [place] 9487783 [phone] Tibc 254 g/dL (250-450) Iron Saturation 8.7 % Low (20-55) 53 Laboratory test 01/16/2008 [facility] 25 Hydroxy 15 NG/ML Low (31-100) 54 finding 17 [facility] [place] @ [place] [address] [phone] Laboratory test 01/16/2008 [facility] %A1c 6.4 % High 4.2- 5.8 finding 77 [facility] 310 [place] [address] [phone] Comp. Metabolic 01/16/2008 [facility] Glucose 127.0 High 65- 110 77 [facility] 310 mg/[place] [address] [phone] BUN 11.0 mg/dL 7-21 Co2 26.0 mEq/L 22-30 Sodium 140 mEq/L 137-145 Potassium 4.3 mEq/L 3.6-5.0 Chloride 106 mEq/L 98-107 Calcium 8.5 mg/dL Low 9-10.5 Creatinine 0.60 mg/dL 0.52-1.25 Total Protein 6.20 g/dL Low 6.3-8.2 Albumin 3.60 g/dL 3.3-4.50 Sgot (Ast) 21.0 IU/L 5-40 Alk Phosphatase 118.0 IU/L 38-126 Total Bilirubin 0.30 mg/dL 0.2-1.3 SGPT (Alt) 23.0 IU/L 7-56 Anion Gap (Calc) 8.0 7-16 BUN/Crea Ratio 18.3 Ratio 7-25 Globulin (Calc) 2.60 g/dL 2.3-3.5 A/G Ratio (Calc) 1.4 Ratio 1.1-2.2 Basic Metabolic 06/13/2007 [facility] Glucose 108 mg/dL ( 70-110) Panel [address] [place] [address] [phone] BUN 11 mg/dL (7-21) Creatinine 0.8 mg/dL (0.6-1.3) Calcium 9.3 mg/dL (8.5-10.5) Sodium 141 mmol/L (136-145) Potassium 4.2 mmol/L (3.6-5.2) Chloride 102 mmol/L (100-108) Co2 27 mmol/L (21-32) GFR 83 ML/MIN/1. (>59) 55 GFR ( Amer) >90 ML/MIN/1. (>59) 56 GFR Interpretation <SEE NOTE> 57 Laboratory test 06/13/2007 [facility] A1c 6.10 % High (4.80 -6.00) 58 finding 17 [place] [address] [phone] Laboratory test 12/25/2006 [facility] 25 Hydroxy 24 NG/ML (20-65) 59 finding 17 [facility] Vit D @ [place] [address] [phone] Intact PTH 58.6 pg/mL (10-69) 60 CMP 12/25/2006 [facility] Glucose 106 mg/dL (70-110) [address] [place] [id number] [phone] BUN 9 mg/dL (7-21) Creatinine 0.6 mg/dL (0.6-1.3) Calcium 8.7 mg/dL (8.5-10.5) Sodium 140 mmol/L (136-145) Potassium 4.2 mmol/L (3.6-5.2) Chloride 104 mmol/L (100-108) Co2 26 mmol/L (21-32) T Bili 0.23 mg/dL (0.00-1.00) Alt 32 U/L (30-65) Ast 13 U/L Low (15-37) Alk Phos 117 U/L (50-136) Albumin 3.4 mg/dL (3.4-4.8) T Protein 6.4 gm/dL (6.4-8.2) GFR >90 ML/MIN/1.7 (>59) 61 GFR ( Amer) >90 ML/MIN/1.7 (>59) 62 GFR Interpretation <SEE NOTE> 63 Vitamin B12 And 12/25/2006 [facility] Vitamin B12 589 pg/mL (160-800) 64 Folate [address] [place] [address] [phone] Folate 20.0 ng/mL High (3-17) 65 Iron Panel 12/25/2006 [facility] Iron 23 g/dL Low (35-150 ) [address] [place], [place] [id number] [phone] Tibc 287 g/dL (250-450) Iron Saturation 8.0 % Low (20-55) 66 CBC No Diff 12/25/2006 [facility] WBC Count 9.0 K/uL (4.8- 10.8) [address] [place] [address] [phone] RBC Count 4.31 m/uL (4.20-5.40) Hemoglobin 13.2 gm/dL Low (13.5-16.0) 67 Hematocrit 39.4 % (36.0-48.0) MCV 91.4 fL (80.0-100.0) MCH 30.7 pg (27.0-34.0) MCHC 33.6 % (30.0-36.5) RDW 12.6 % (11.0-15.0) Platelet Count 320 K/uL (130-450) 68 Laboratory test 12/25/2006 [facility] A1c 6.40 % High (4.80 -6.00) [address] [place] [address] [phone] Iron Panel 08/09/2006 [facility] Iron 20 g/dL Low (35-150 ) [address] [place] [address] [id number] [phone] Tibc 283 g/dL (250-450) Iron Saturation 7.1 % Low (20-55) 70 CBC No Diff 08/09/2006 [facility] WBC Count 8.3 K/uL (4.8- 10.8) [address] [place] [address] [phone] RBC Count 4.45 m/uL (4.20-5.40) Hemoglobin 12.6 gm/dL Low (13.5-16.0) 71 Hematocrit 40.5 % (36.0-48.0) MCV 91.0 fL (80.0-100.0) MCH 28.2 pg (27.0-34.0) MCHC 31.0 % (30.0-36.5) RDW 13.7 % (11.0-15.0) Platelet Count 298 K/uL (130-450) 72 Laboratory test 08/09/2006 [facility] Vitamin B12 770 pg/mL (160-800) [address] [place] [phone] Basic Metabolic 08/09/2006 [facility] Glucose 102 mg/dL ( 70-110) Panel [address] [place] [address] [phone] BUN 9 mg/dL (7-21) Creatinine 0.5 mg/dL Low (0.6-1.3) Calcium 9.1 mg/dL (8.5-10.5) Sodium 137 mmol/L (136-145) Potassium 4.4 mmol/L (3.6-5.2) Chloride 103 mmol/L (100-108) Co2 25 mmol/L (21-32) GFR >90 ML/MIN/1.7 (>59) 74 GFR ( Amer) >90 ML/MIN/1.7 (>59) 75 GFR Interpretation <SEE NOTE> 76 Laboratory test 08/09/2006 [facility] A1c 6.40 % High (4.80 -6.00) 77 finding 17 [place] [address] [phone] Iron Panel 01/30/2006 [facility] Iron 20 g/dL Low (35-150 ) [address] [place] [phone] Tibc 246 g/dL Low (250-450) Iron Saturation 8.1 % Low (20-55) 78 CMP 01/30/2006 [facility] Glucose 159 mg/dL High (70-110) [address] [place] [phone] BUN 10 mg/dL (7-21) Creatinine 0.7 mg/dL (0.6-1.3) Calcium 8.8 mg/dL (8.5-10.5) Sodium 139 mmol/L (136-145) Potassium 4.0 mmol/L (3.6-5.2) Chloride 103 mmol/L (100-108) Co2 26 mmol/L (21-32) T Bili 0.23 mg/dL (0.00-1.00) Alt 41 U/L (30-65) Ast 21 U/L (15-37) Alk Phos 104 U/L (50-136) Albumin 3.3 mg/dL Low (3.4-4.8) T Protein 6.4 gm/dL (6.4-8.2) GFR >90 ML/MIN/1.7 (>59) 79 GFR ( Amer) >90 ML/MIN/1.7 (>59) 80 GFR Interpretation <SEE NOTE> 81 Laboratory test 01/30/2006 [facility] Vitamin B12 373 pg/mL (160-800) 82 finding 17 [place] [address] [phone] Folate >24 ng/mL High (3-17) 83 Laboratory test 01/30/2006 [facility] A1c 7.30 % High (4.80 -6.00) 84 finding 17 [place] [address] [phone] Cell Profile 01/30/2006 [facility] WBC Count 9.2 K/uL (4.8 -10.8) 17 [place] [address] [phone] RBC Count 4.15 m/uL Low (4.20-5.40) Hemoglobin 11.9 gm/dL Low (13.5-16.0) Hematocrit 36.7 % (36.0-48.0) MCV 88.3 fL (80.0-100.0) MCH 28.7 pg (27.0-34.0) MCHC 32.5 % (30.0-36.5) RDW 15.5 % High (11.0-15.0) Platelet Count 360 K/uL (130-450) 85 Laboratory test 01/30/2006 [facility] Ferritin 159 ng/mL ( 6-159) 86 finding 17 [place] [address] [phone] Laboratory test 06/09/2005 [facility] Hemoglobin A1c 9.4 % AB 87, 88 finding [phone] GFR (Calculated) >60 89 Lipid 06/09/2005 [facility] Cholesterol, 201 mg/dL High 120- 200 90 Profile [phone] Total HDL Cholesterol 52 mg/dL 40-60 LDL Cholesterol, Calc. 106 mg/dL AB 91 Triglycerides 216 mg/dL AB 92 LDL/HDL Cholesterol 2.0 93 Chol/HDL Cholesterol 3.9 94 Hepatic (Liver) Panel 06/09/2005 [facility] Albumin 4.3 g/dL 3.5-4.7 [phone] Protein, Total 6.9 g/dL 6.4-8.2 Alkaline Phosphatase 87 U/L 10-118 Sgot (Ast) 15 U/L 3-30 SGPT (Alt) 22 U/L 7-40 Bilirubin, Total 0.49 mg/dL 0.30-1.20 Bilirubin, Direct 0.15 mg/dL 0.00-0.40 Bilirubin, Indirect 0.34 mg/dL 0.10-1.10 Basic Metabolic 06/09/2005 [facility] Glucose 161 mg/dL High 70-100 Panel [phone] BUN 16 mg/dL 4-18 Creatinine, Serum 0.8 mg/dL 0.5-1.2 Sodium 139 mmol/L 136-146 Potassium 5.1 mmol/L 3.5-5.3 Chloride 102 mmol/L 98-110 Carbon Dioxide 24 mmol/L 20-32 Calcium 9.8 mg/dL 8.4-10.4 Laboratory test finding 03/06/2005 [facility] Hemoglobin A1c 9.5 % AB 95 [phone] GFR (Calculated) >60 96 Basic Metabolic 03/06/2005 [facility] Glucose 179 mg/dL High 70-100 Panel [phone] BUN 15 mg/dL 4-18 Creatinine, Serum 0.8 mg/dL 0.5-1.2 Sodium 138 mmol/L 136-146 Potassium 4.6 mmol/L 3.5-5.3 Chloride 102 mmol/L 98-110 Carbon Dioxide 24 mmol/L 20-32 Calcium 9.2 mg/dL 8.4-10.4 97 Laboratory test 10/11/2004 [facility] Hemoglobin A1c 12.0 % AB 98 finding [phone] GFR (Calculated) >60 99 Basic Metabolic 10/11/2004 [facility] Glucose 272 mg/dL High 61-110 Panel [phone] BUN 14 mg/dL 4-18 Creatinine, Serum 0.9 mg/dL 0.5-1.2 Sodium 138 mmol/L 136-146 Potassium 4.7 mmol/L 3.5-5.3 Chloride 101 mmol/L 98-107 Carbon Dioxide 27 mmol/L 20-32 Calcium 9.7 mg/dL 8.4-10.6 Laboratory 09/05/2004 [facility] TSH (Thyrotropin) 3.100 0.350-5.500 test finding [phone] uIU/ml Hemoglobin A1c 11.3 % AB 100 GFR (Calculated) >60 101 Lipid 09/05/2004 [facility] Cholesterol, 209 mg/dL High 120- 200 102 Profile [phone] Total HDL Cholesterol 52 mg/dL 40-60 LDL Cholesterol, Calc. 96 mg/dL 103 Triglycerides 306 mg/dL AB 104 LDL/HDL Cholesterol 1.8 105 Chol/HDL Cholesterol 4.0 106 Basic Metabolic 09/05/2004 [facility] Glucose 225 mg/dL High 61-110 Panel [phone] BUN 10 mg/dL 4-18 Creatinine, Serum 0.8 mg/dL 0.5-1.2 Sodium 136 mmol/L 136-146 Potassium 4.7 mmol/L 3.5-5.3 Chloride 100 mmol/L 98-107 Carbon Dioxide 25 mmol/L 20-32 Calcium 9.1 mg/dL 8.4-10.6 1 For patients, multiply result by 1.159 Units expressed as mL/min/1.73m^2 Normal Range is > or=to 60. 2 LDL(Calc.) invalid if triglycerides >400. 3 LDL(Calc.) invalid if triglycerides >400. 4 For patients, multiply result by 1.159 Units expressed as mL/min/1.73m^2 Normal Range is > or=to 60. 5 Cholesterol/HDL Ratio Interpretation Risk : 1/2 Avg Avg 2x Avg 3x Avg Male : 3.43 4.97 9.50 23.99 Female : 3.27 4.44 7.05 11.04 6 Normal Kidney Function or Mild Disease - GFR >OR=60 Chronic Kidney Disease - GFR 15-59 Renal Failure - GFR < 15 GFR not calculated on patients under 18 years of age. 7 FASTING 8 Cholesterol/HDL Ratio Interpretation Risk : 1/2 Avg Avg 2x Avg 3x Avg Male : 3.43 4.97 9.50 23.99 Female : 3.27 4.44 7.05 11.04 9 [place] Diabetes Association recommends that the upper limit of the normal reference range for Glucose be 100 mg/dl. 10 Normal Kidney Function or Mild Disease - GFR >OR=60 Chronic Kidney Disease - GFR 15-59 Renal Failure - GFR < 15 GFR not calculated on patients under 18 years of age. 11 The [place] Diabetes Association recommends that the upper limit of the normal reference range for Glucose be 100 mg/dl. 12 Normal Kidney Function or Mild Disease - GFR >OR=60 Chronic Kidney Disease - GFR 15-59 Renal Failure - GFR < 15 GFR not calculated on patients under 18 years of age. 13 Cholesterol/HDL Ratio Interpretation Risk : 1/2 Avg Avg 2x Avg 3x Avg Male : 3.43 4.97 9.50 23.99 Female : 3.27 4.44 7.05 11.04 14 DIRECT EXAM Many WBC Organisms were not found CULTURE OBSERVATIONS MRSA screen test negative 15 Rare Pseudomonas aeruginosa 16 COMMENTS 1 Specimen Site/Source: [facility] DIRECT EXAM WBC's or organisms were not found CULTURE OBSERVATIONS Rare colonies of Mixed growth including Viridans streptococcus group and Staphylococcus Coagulase negative MRSA screen test negative 17 Rare Pseudomonas aeruginosa 18 FASTING 19 LDL(Calc.) invalid if triglycerides >400. 20 Units expressed as mL/min/1.73m^2 21 VITAMIN D STATUS VITAMIN D Level 22 The [place] Diabetes Association recommends that the upper limit of the normal reference range for Glucose be 100 mg/dl. 23 Normal Kidney Function or Mild Disease - GFR >OR=60 Chronic Kidney Disease - GFR 15-59 Renal Failure - GFR < 15 GFR not calculated on patients under 18 years of age. Calculated (estimated) G FR is based on the MDRD Study equation, which assumes a steady state for creatinine. Estimated GFR may not be appropriate for medication dosing. 24 Cholesterol/HDL Ratio Interpretation Risk : 1/2 Avg Avg 2x Avg 3x Avg Male : 3.43 4.97 9.50 23.99 Female : 3.27 4.44 7.05 11.04 25 Growth not obtained 26 MRSA screen test negative 27 WBC's or organisms were not found 28 Units expressed as mL/min/1.73m^2 29 WBC's or organisms were not found 30 MRSA screen test negative 31 Few Pseudomonas aeruginosa 32 Units expressed as mL/min/1.73m^2 33 Units expressed as mL/min/1.73m^2 34 NOTE: New reporting units and reference range effective 2010 35 Units expressed as mL/min/1.73m^2 36 Units expressed as mL/min/1.73m^2 37 The [place] Diabetes Association recommends that the upper limit of the normal reference range for Glucose be 100 mg/dl. 38 Normal Kidney Function or Mild Disease - GFR >OR=60 Chronic Kidney Disease - GFR 15-59 Renal Failure - GFR < 15 GFR not calculated on patients under 18 years of age. Calculated (estimated) G FR is based on the MDRD Study equation, which assumes a steady state for creatinine. Estimated GFR may not be appropriate for medication dosing. 39 Cholesterol/HDL Ratio Interpretation Risk : 1/2 Avg Avg 2x Avg 3x Avg Male : 3.43 4.97 9.50 23.99 Female : 3.27 4.44 7.05 11.04 40 The [place] Diabetes Association recommends that the upper limit of the normal reference range for Glucose be 100 mg/dl. 41 Normal Kidney Function or Mild Disease - GFR >OR=60 Chronic Kidney Disease - GFR 15-59 Renal Failure - GFR < 15 Calculated (estimated) GFR is based on the MDRD Study equation, which assumes a steady state for creatinine. Estimated GFR may not be appropriate for medication dosing. 42 Units expressed as mL/min/1.73m^2 43 The [place] Diabetes Association recommends that the upper limit of the normal reference range for glucose be 100 mg/dL. 44 45 46 NORMAL KIDNEY FUNCTION OR MILD DISEASE -- GFR >OR=60 CHRONIC KIDNEY DISEASE -- GFR 15-59 RENAL FAILURE -- GFR <15 Calculated(estimated) GFR is based on the MDRD Study equation, which assumes a steady state for creatinine. Estimated GFR may not be appropriate for medication dosing[place] [address] 47 A1C guidelines for diabetic control as suggested by the [place] Diabetes Association: Goal of therapy=<7.00%. Re-evaluate treatment if consistently >8.00%. [place] [address] 48 A REVIEW OF THE LITERATURE SUGGESTS THE FOLLOWING RANGES FOR THE CLASSIFICATION OF 25-OH VITAMIN D STATUS: VITAMIN D STATUS 25-OH VITAMIN D DEFICIENCY < 10 NG/ML INSUFFICIENCY 10 - 30 NG/ML SUFFICIENCY 31 - 100 NG/ML TOXICITY > 100 NG/ML A PEDIATRIC REFERENCE RANGE HAS NOT BEEN ESTABLISHED USING THIS METHOD. 49 A REVIEW OF THE LITERATURE SUGGESTS THE FOLLOWING RANGES FOR THE CLASSIFICATION OF 25-OH VITAMIN D STATUS: VITAMIN D STATUS 25-OH VITAMIN D DEFICIENCY < 10 NG/ML INSUFFICIENCY 10 - 30 NG/ML SUFFICIENCY 31 - 100 NG/ML TOXICITY > 100 NG/ML A PEDIATRIC REFERENCE RANGE HAS NOT BEEN ESTABLISHED USING THIS METHOD. 50 A REVIEW OF THE LITERATURE SUGGESTS THE FOLLOWING RANGES FOR THE CLASSIFICATION OF 25-OH VITAMIN D STATUS: VITAMIN D STATUS 25-OH VITAMIN D DEFICIENCY < 10 NG/ML INSUFFICIENCY 10 - 30 NG/ML SUFFICIENCY 31 - 100 NG/ML TOXICITY > 100 NG/ML A PEDIATRIC REFERENCE RANGE HAS NOT BEEN ESTABLISHED USING THIS METHOD. 51 [place] [address] 52 [place] [address] 53 [place] [address] 54 A REVIEW OF THE LITERATURE SUGGESTS THE FOLLOWING RANGES FOR THE CLASSIFICATION OF 25-OH VITAMIN D STATUS: VITAMIN D STATUS 25-OH VITAMIN D DEFICIENCY < 10 NG/ML INSUFFICIENCY 10 - 30 NG/ML SUFFICIENCY 31 - 100 NG/ML TOXICITY > 100 NG/ML A PEDIATRIC REFERENCE RANGE HAS NOT BEEN ESTABLISHED USING THIS METHOD. 55 56 57 NORMAL KIDNEY FUNCTION OR MILD DISEASE -- GFR >OR=60 CHRONIC KIDNEY DISEASE -- GFR 15-59 RENAL FAILURE -- GFR <15 Calculated(estimated) GFR is based on the MDRD Study equation, which assumes a steady state for creatinine. Estimated GFR may not be appropriate for medication dosing. [place] [address] 58 ~A1C guidelines for diabetic control as suggested by the [place]~Diabetes Association: Goal of therapy=<7.00%. Re-evaluate~treatment if consistently > 8.00%. ~Testing performed by [facility], [address] [place] [address],[place] [address] 59 SOME STUDIES SUGGEST THAT PATIENTS WITH LEVELS BELOW 30 NG/ML MAY BENEFIT FROM VIT D SUPPLEMENTS. 60 [place] [address] 61 62 63 NORMAL KIDNEY FUNCTION OR MILD DISEASE -- GFR >OR=60 CHRONIC KIDNEY DISEASE -- GFR 15-59 RENAL FAILURE -- GFR <15 Calculated(estimated) GFR is based on the MDRD Study equation, which assumes a steady state for creatinine. Estimated GFR may not be appropriate for medication dosing. Testing performed by [address] [address] 64 NOTE: B12 LEVELS CAN VARY WITH INTAKE OF FOODS CONTAINING THIS VITAMIN. 65 NOTE: FOLATE LEVELS CAN VARY WITH INTAKE OF FOODS CONTAINING THIS VITAMIN. Testing performed by [address] [address] 66 [place] [address] 67 Reference range: 12.0 to 16.0 68 Testing performed by [address] [address] 69 A1C guidelines for diabetic control as suggested by the [place] Diabetes Association: Goal of therapy=<7.00%. Re-evaluate treatment if consistently >8.00%. Testing performed by [address] [address] 70 Testing performed by [address] [id number] 71 Reference range: 12.0 to 16.0 72 Testing performed by [address] [address] 73 NOTE: B12 LEVELS CAN VARY WITH INTAKE OF FOODS CONTAINING THIS VITAMIN. Testing performed by [address] [address] 74 75 76 NORMAL KIDNEY FUNCTION OR MILD DISEASE -- GFR >OR=60 CHRONIC KIDNEY DISEASE -- GFR 15-59 RENAL FAILURE -- GFR <15 Calculated(estimated) GFR is based on the MDRD Study equation, which assumes a steady state for creatinine. Estimated GFR may not be appropriate for medication dosing. Testing performed by [address] [address] 77 A1C guidelines for diabetic control as suggested by the [place] Diabetes Association: Goal of therapy=<7.00%. Re-evaluate treatment if consistently >8.00%. Testing performed by [address] [address] 78 [place] [address] 79 80 81 NORMAL KIDNEY FUNCTION OR MILD DISEASE -- GFR >OR=60 CHRONIC KIDNEY DISEASE -- GFR 15-59 RENAL FAILURE -- GFR <15 Calculated(estimated) GFR is based on the MDRD Study equation, which assumes a steady state for creatinine. Estimated GFR may not be appropriate for medication dosing. [place] [address] 82 NOTE: B12 LEVELS CAN VARY WITH INTAKE OF FOODS CONTAINING THIS VITAMIN. [place] [address] 83 NOTE: FOLATE LEVELS CAN VARY WITH INTAKE OF FOODS CONTAINING THIS VITAMIN. [place] [address] 84 A1C guidelines for diabetic control as suggested by the [place] Diabetes Association: Goal of therapy=<7.00%. Re-evaluate treatment if consistently >8.00%. [place] [address] 85 [place] [address] 86 [place] [address] 87 FASTING 88 HGBA1C (%) GLUCOSE CONTROL >8 Action Suggested 7-8 Good Control <7 Goal 6-7 Near Normal Glycem <6 Non-diabetic Level . 89 mL/min/1.73m2 . Normal Function or Mild Renal Disease, if clinically at risk: >or=60 Moderately decreased: 30 - 59 Severely decreased: 15 - 29 Renal Failure: <15 . Please note that the MDRD equation requires an additional adjustment for -Americans (multiply the GFR result by 1.210). . Glomerular Filtration Rate (GFR) is estimated based on the MDRD equation, which assumes a steady state for creatinine (Michelle Int Med 139/2 137-149, 2003), as recommended by the National Kidney Disease Education Program in conjunction with the National Institutes of Health and the National Kidney Foundation. . Clinical conditions in which it may be necessary to measure GFR by using clearance methods include extremes of age and body size, severe malnutrition or obesity, diseases of skeletal muscle, paraplegia or quadriplegia, vegetarian diet, rapidly changing kidney function, and calculation of the dose of potentially toxic drugs that are excreted by the kidneys. . 90 Cholesterol Risk Levels (NIH) Recommended: under 200 mg/dl Borderline : 200-239 mg/dl High Risk : Above 240 mg/dl . 91 The National Cholesterol Education Program recommends the following ranges for LDL Cholesterol: Optimal under 100 mg/dl Near or above Optimal 100 - 129 mg/dl Borderline High 130 - 159 mg/dl High 160 - 189 mg/dl Very High above 190 mg/dl . 92 Triglyceride Risk Levels: Normal : <150 mg/dl Borderline : 150-199 mg/dl High : 200-499 mg/dl Very High : >500 mg/dl . 93 LDL/HDL Risk Ratio Levels MALE FEMALE 1/2 X Average 1.00 1.47 Average 3.55 3.22 2 X Average 6.25 5.03 3 X Average 7.99 6.14 . 94 CHOL/HDL Risk Ratio Levels MALE FEMALE 1/2 X Average 3.4 3.3 Average 5.0 4.4 2 X Average 9.5 7.0 3 X Average 24.0 11.0 . 95 HGBA1C (%) GLUCOSE CONTROL >8 Action Suggested 7-8 Good Control <7 Goal 6-7 Near Normal Glycem <6 Non-diabetic Level . 96 mL/min/1.73m2 . Normal Function or Mild Renal Disease, if clinically at risk: >or=60 Moderately decreased: 30 - 59 Severely decreased: 15 - 29 Renal Failure: <15 . Please note that the MDRD equation requires an additional adjustment for -Americans (multiply the GFR result by 1.210). . Glomerular Filtration Rate (GFR) is estimated based on the MDRD equation, which assumes a steady state for creatinine (Michelle Int Med 139/2 137-149, 2002), as recommended by the National Kidney Disease Education Program in conjunction with the National Institutes of Health and the National Kidney Foundation. . Clinical conditions in which it may be necessary to measure GFR by using clearance methods include extremes of age and body size, severe malnutrition or obesity, diseases of skeletal muscle, paraplegia or quadriplegia, vegetarian diet, rapidly changing kidney function, and calculation of the dose of potentially toxic drugs that are excreted by the kidneys. . 97 . Effective January: Please note a change in adult reference range. 98 HGBA1C (%) GLUCOSE CONTROL >8 Action Suggested 7-8 Good Control <7 Goal 6-7 Near Normal Glycem <6 Non-diabetic Level . 99 mL/min/1.73m2 . Normal Function or Mild Renal Disease, if clinically at risk: >or=60 Moderately decreased: 30 - 59 Severely decreased: 15 - 29 Renal Failure: <15 . Please note that the MDRD equation requires an additional adjustment for -Americans (multiply the GFR result by 1.210). . Glomerular Filtration Rate (GFR) is estimated based on the MDRD equation, which assumes a steady state for creatinine (Michelle Int Med 139/2 137-149, 2003), as recommended by the National Kidney Disease Education Program in conjunction with the National Institutes of Health and the National Kidney Foundation. . Clinical conditions in which it may be necessary to measure GFR by using clearance methods include extremes of age and body size, severe malnutrition or obesity, diseases of skeletal muscle, paraplegia or quadriplegia, vegetarian diet, rapidly changing kidney function, and calculation of the dose of potentially toxic drugs that are excreted by the kidneys. . 100 HGBA1C (%) GLUCOSE CONTROL >8 Action Suggested 7-8 Good Control <7 Goal 6-7 Near Normal Glycem <6 Non-diabetic Level . 101 mL/min/1.73m2 . Normal Function or Mild Renal Disease, if clinically at risk: >or=60 Moderately decreased: 30 - 59 Severely decreased: 15 - 29 Renal Failure: <15 . Please note that the MDRD equation requires an additional adjustment for -Americans (multiply the GFR result by 1.210). . Glomerular Filtration Rate (GFR) is estimated based on the MDRD equation, which assumes a steady state for creatinine (Michelle Int Med 139/2 137-149, 2003), as recommended by the National Kidney Disease Education Program in conjunction with the National Institutes of Health and the National Kidney Foundation. . Clinical conditions in which it may be necessary to measure GFR by using clearance methods include extremes of age and body size, severe malnutrition or obesity, diseases of skeletal muscle, paraplegia or quadriplegia, vegetarian diet, rapidly changing kidney function, and calculation of the dose of potentially toxic drugs that are excreted by the kidneys. . 102 Cholesterol Risk Levels (NIH) Recommended: under 200 mg/dl Borderline : 200-239 mg/dl High Risk : Above 240 mg/dl . 103 The National Cholesterol Education Program recommends the following ranges for LDL Cholesterol: Optimal under 100 mg/dl Near or above Optimal 100 - 129 mg/dl Borderline High 130 - 159 mg/dl High 160 - 189 mg/dl Very High above 190 mg/dl . 104 Triglyceride Risk Levels: Normal : <150 mg/dl Borderline : 150-199 mg/dl High : 200-499 mg/dl Very High : >500 mg/dl . 105 LDL/HDL Risk Ratio Levels MALE FEMALE 1/2 X Average 1.00 1.47 Average 3.55 3.22 2 X Average 6.25 5.03 3 X Average 7.99 6.14 . 106 CHOL/HDL Risk Ratio Levels MALE FEMALE 1/2 X Average 3.4 3.3 Average 5.0 4.4 2 X Average 9.5 7.0 3 X Average 24.0 11.0 . Procedures Date Code Description Status 02/19/2018 [id number] Mammogram Completed 02/19/2018 [id number] Colonoscopy Completed 09/25/2017 11425 EKG - In Office Completed 03/20/2011 57205 EKG - In Office Completed 01/23/2011 54437 Theraputic Injection (2008)Of Med Im Completed 01/16/2011 93898 Theraputic Injection (2008)Of Med Im Completed 01/09/2011 09549 Theraputic Injection (2008)Of Med Im Completed 01/02/2011 31707 Theraputic Injection (2008)Of Med Im Completed Encounters Type Date Location Provider Dx Diagnosis Office Visit 11/13/2018 Main Office Yaya Cuevas E11.65 Type 2 diabetes 3:45p Sal Reed mellitus with hyperglycemia E78.2 Mixed hyperlipidemia J45.20 Mild intermittent asthma, uncomplicated K21.9 Gastro-esophageal reflux disease without esophagitis G47.33 Obstructive sleep apnea (adult) (pediatric) L02.818 Cutaneous abscess of other sites E66.01 Morbid (severe) obesity due to excess calories Z71.3 Dietary counseling and surveillance Z68.43 Body mass index (BMI) 50-59.9, adult Office Visit 05/29/2018 3:20p Main Office Anne Razo R06.02 Shortness of [place], [employer] breath Z71.3 Dietary counseling and surveillance Office Visit 05/16/2018 3:30p Main Office Yaya Cuevas Z00.00 Evie Reed M.D. general adult medical exam w/o abnormal findings E11.65 Type 2 diabetes mellitus with hyperglycemia E78.2 Mixed hyperlipidemia J45.20 Mild intermittent asthma, uncomplicated K21.9 Gastro-esophageal reflux disease without esophagitis E66.01 Morbid (severe) obesity due to excess calories Z71.3 Dietary counseling and surveillance Z68.43 Body mass index (BMI) 50-59.9, adult Office Visit 09/25/2017 2:15p Main Office Yaya Cuevas Z01.810 Encounter for Sal Reed preprocedural cardiovascular examination M25.561 Pain in right knee E11.65 Type 2 diabetes mellitus with hyperglycemia E78.2 Mixed hyperlipidemia J45.20 Mild intermittent asthma, uncomplicated K21.9 Gastro-esophageal reflux disease without esophagitis Office Visit 05/14/2017 4:00p Main Office Yaya Cuevas Z00.00 Evie Reed M.D. general adult medical exam w/o abnormal findings E11.65 Type 2 diabetes mellitus with hyperglycemia E78.2 Mixed hyperlipidemia J45.20 Mild intermittent asthma, uncomplicated R23.8 Other skin changes Office Visit 03/26/2017 10:30a Main Office Yaya Cuevas Z01.810 Encounter for Sal Reed preprocedural cardiovascular examination M25.561 Pain in right knee E11.65 Type 2 diabetes mellitus with hyperglycemia M25.562 Pain in left knee E78.2 Mixed hyperlipidemia J45.20 Mild intermittent asthma, uncomplicated M25.569 Pain in unspecified knee J45.30 Mild persistent asthma, uncomplicated Office Visit 11/17/2016 4:30p Main Office Yaya Cota.65 Type 2 diabetes Sal Reed mellitus with hyperglycemia E78.2 Mixed hyperlipidemia J45.20 Mild intermittent asthma, uncomplicated M25.569 Pain in unspecified knee Office Visit 03/15/2016 3:30p Main Office Yaya Cuevas E11.65 Type 2 diabetes Sal Reed mellitus with hyperglycemia E78.2 Mixed hyperlipidemia J45.909 Unspecified asthma, uncomplicated M25.569 Pain in unspecified knee Office Visit 09/15/2015 3:15p Main Office Yaya Cuevas E11.9 Type 2 diabetes Sal Reed mellitus without complications E78.2 Mixed hyperlipidemia J45.909 Unspecified asthma, uncomplicated Office Visit 05/17/2015 3:30p Main Office Yaya Cuevas Z00.00 Encntr for Sal Reed general adult medical exam w/o abnormal findings E11.9 Type 2 diabetes mellitus without complications E78.2 Mixed hyperlipidemia J45.909 Unspecified asthma, uncomplicated L02.818 Cutaneous abscess of other sites Office Visit 12/18/2014 11:15a Main Office Yaya Cuevas 682.9 Cellulitis & Sal Reed Abscess Unspec Site 719.46 Pain Joint Lower Leg Office Visit 11/17/2014 3:30p Main Office Yaya Cuevas 250.00 Diabetes Suly Reed M.D. W/O Compl Type II Or Unspec Controlled 272.2 Hyperlipidemia Mixed 280.8 Iron Deficiency Anemia Other Spec 493.90 Asthma Unspec W/O Status Asthmaticus Office Visit 08/28/2014 1:45p Main Office Yaya Cuevas 682.9 Cellulitis & Sal Reed Abscess Unspec Site Office Visit 05/08/2014 2:30p Main Office Yaya Cuevas 250.00 Diabetes Suly Reed M.D. W/O Compl Type II Or Unspec Controlled 272.2 Hyperlipidemia Mixed 268.9 Vitamin D Deficiency Unspec 280.8 Iron Deficiency Anemia Other Spec 682.8 Cellulitis & Abscess Scalp,Head(Not Face)Other Spec Sites V76.9 Screening Malignant Neoplasm Unspec Office Visit 11/06/2013 2:30p Main Office Yaya Cuevas 250.00 Diabetes Mellitus Sal Reed W/O Compl Type II Or Unspec Controlled 272.2 Hyperlipidemia Mixed 268.9 Vitamin D Deficiency Unspec 280.8 Iron Deficiency Anemia Other Spec Office Visit 08/01/2013 4:30p Main Office Yaya Cuevas 250.00 Diabetes Mellitus Sal Reed W/O Compl Type II Or Unspec Controlled 794.2 Pulmonary Study Abnormal 268.9 Vitamin D Deficiency Unspec 285.9 Anemia Unspec Office Visit 04/18/2013 9:15a Main Office Yaya Cuevas 682.8 Cellulitis & Abscess Sal Reed Scalp,Head(Not Face)Other Spec Sites Office Visit 04/15/2013 10:45a Main Office Yaya Cuevas 682.8 Cellulitis & Abscess Sal Reed Scalp,Head(Not Face)Other Spec Sites Office Visit 03/12/2013 2:30p Main Office Yaya Cuevas 709.9 Skin & Subcutaneous Sal Reed Tissue Disorders Unspec 719.46 Pain Joint Lower Leg 250.00 Diabetes Mellitus W/O Compl Type II Or Unspec Controlled Office Visit 01/21/2013 4:30p Main Office Matthew Walker M.D. 250.00 Diabetes Mellitus W/O Compl Type II Or Unspec Controlled 729.82 Cramp Of Limb 726.19 Shoulder Disorders Other Spec Office Visit 05/03/2012 4:00p Main Office Matthew Walker M.D. 707.8 Ulcer Chronic Other Spec Sites 465.9 URI Upper Respiratory Infections Acute Unspec Sites 250.00 Diabetes Mellitus W/O Compl Type II Or Unspec Controlled Office Visit 10/03/2011 3:30p Main Office Matthew Walker M.D. 729.82 Cramp Of Limb 250.00 Diabetes Mellitus W/O Compl Type II Or Unspec Controlled 493.90 Asthma Unspec W/O Status Asthmaticus Office Visit 03/20/2011 3:45p Main Office Matthew Walker M.D. 250.00 Diabetes Mellitus W/O Compl Type II Or Unspec Controlled 493.90 Asthma Unspec W/O Status Asthmaticus 726.19 Shoulder Disorders Other Spec 465.9 URI Upper Respiratory Infections Acute Unspec Sites V72.84 Examination Preoperative Unspec 366.9 Cataract Unspec Office Visit 02/06/2011 3:45p Main Office aMtthew Walker M.D. 250.00 Diabetes Mellitus W/O Compl Type II Or Unspec Controlled 285.9 Anemia Unspec 726.19 Shoulder Disorders Other Spec 493.90 Asthma Unspec W/O Status Asthmaticus Office Visit 12/29/2010 2:40p Main Office Pedro Luis Jett, 285.9 Anemia Unspec R.N.,A.N.P. 465.9 URI Upper Respiratory Infections Acute Unspec Sites Office Visit 10/05/2010 Main Office Matthew Walker M.D. 780.52 Insomnia 4:00p Unspecified 250.00 Diabetes Mellitus W/O Compl Type II Or Unspec Controlled Office Visit 07/08/2010 4:30p Main Office Matthew Walker M.D. 250.00 Diabetes Mellitus W/O Compl Type II Or Unspec Controlled 300.00 Anxiety State Unspec 780.52 Insomnia Unspecified Office Visit 12/02/2009 4:30p Main Office Matthew Walker M.D. 250.00 Diabetes Mellitus W/O Compl Type II Or Unspec Controlled 269.2 Vitamin Deficiency Unspec 493.90 Asthma Unspec W/O Status Asthmaticus 518.89 Lung Disease Other Not Elsewhere Class Office Visit 07/20/2009 4:30p Main Office Matthew Walker M.D. 250.00 Diabetes Mellitus W/O Compl Type II Or Unspec Controlled 278.00 Obesity Unspec 268.9 Vitamin D Deficiency Unspec 493.90 Asthma Unspec W/O Status Asthmaticus Office Visit 03/23/2009 4:15p Main Office Matthew Walker M.D. 268.9 Vitamin D Deficiency Unspec 250.00 Diabetes Mellitus W/O Compl Type II Or Unspec Controlled 278.00 Obesity Unspec 461.0 Sinusitis Acute Maxillary Office Visit 11/05/2008 3:45p Main Office Matthew Walker M.D. 278.00 Obesity Unspec 250.00 Diabetes Mellitus W/O Compl Type II Or Unspec Controlled 518.89 Lung Disease Other Not Elsewhere Class 268.9 Vitamin D Deficiency Unspec Office Visit 07/09/2008 4:00p Main Office Matthew Walker M.D. 250.00 Diabetes Mellitus W/O Compl Type II Or Unspec Controlled 278.00 Obesity Unspec Office Visit 04/08/2008 4:00p Main Office Matthew Walker M.D. 250.00 Diabetes Mellitus W/O Compl Type II Or Unspec Controlled 278.00 Obesity Unspec 268.9 Vitamin D Deficiency Unspec Office Visit 02/27/2008 4:00p Main Office Erica Crowell 465.8 Upper Respiratory Sal Robins Infections Acute Other Multiple Sites Office Visit 12/04/2007 4:00p Main Office Matthew 250.00 Татьяна Walker M.D. W/O Compl Type II Or Unspec Controlled 278.00 Obesity Unspec 269.2 Vitamin Deficiency Unspec Office Visit 09/04/2007 3:15p Main Office Matthew Walker M.D. 278.00 Obesity Unspec Office Visit 06/13/2007 3:30p Main Office Matthew Walker M.D. 278.00 Obesity Unspec 250.00 Diabetes Mellitus W/O Compl Type II Or Unspec Controlled 729.82 Cramp Of Limb 715.00 Osteoarthrosis Generalized Site Unspec Office Visit 12/25/2006 4:15p Main Office Matthew Walker M.D. 278.00 Obesity Unspec 250.00 Diabetes Mellitus W/O Compl Type II Or Unspec Controlled 285.9 Anemia Unspec Office Visit 08/09/2006 4:00p Main Office Matthew Walker M.D. 278.00 Obesity Unspec 250.00 Diabetes Mellitus W/O Compl Type II Or Unspec Controlled 285.9 Anemia Unspec Office Visit 05/08/2006 4:00p Main Office Matthew Walker M.D. 250.00 Diabetes Mellitus W/O Compl Type II Or Unspec Controlled 278.00 Obesity Unspec Office Visit 01/30/2006 4:00p Main Office Matthew Walker M.D. 250.00 Diabetes Mellitus W/O Compl Type II Or Unspec Controlled 278.00 Obesity Unspec Office Visit 10/30/2005 4:45p Main Office Matthew Walker M.D. 250.00 Diabetes Mellitus W/O Compl Type II Or Unspec Controlled 278.00 Obesity Unspec Office Visit 06/19/2005 11:45a Main Office Matthew Walker M.D. 278.00 Obesity Unspec 250.00 Diabetes Mellitus W/O Compl Type II Or Unspec Controlled Office Visit 03/21/2005 4:00p Main Office Matthew Walker M.D. 250.00 Diabetes Mellitus W/O Compl Type II Or Unspec Controlled 278.00 Obesity Unspec Office Visit 12/20/2004 2:30p Main Office Matthew Walkre M.D. 250.00 Diabetes Mellitus W/O Compl Type II Or Unspec Controlled 278.00 Obesity Unspec Office Visit 11/01/2004 3:40p Main Office Pedro Luis Jett 250.00 Diabetes Mellitus R.N.,A.N.P. W/O Compl Type II Or Unspec Controlled Office Visit 10/11/2004 4:15p Main Office Matthew 250.00 Татьяна Walker M.D. W/O Compl Type II Or Unspec Controlled 278.00 Obesity Unspec Office Visit 08/26/2004 4:00p Main Office Matthew Walker M.D. 250.00 Diabetes Mellitus W/O Compl Type II Or Unspec Controlled 278.00 Obesity Unspec Plan of Treatment Future Appointment(s):05/19/2019 4:00 pm - Yaya Reed M.D. at Main [id number]/13/2018 - Yaya Reed M.D.E11.65 Type 2 diabetes mellitus with hyperglycemiaFollow up:6 koxwwhV71.2 Mixed hyperlipidemiaNew Labs:CBC W/ Diff (Internalmed), Ordered: 11/13/18CMP, Ordered: 11/13/18LP (Lipid), Ordered: 11/13/18A1c (HGB A1c), Ordered: 11/13/18J45.20 Mild intermittent asthma, mrcyyualrgqkcV21.9 Gastro-esophageal reflux disease without jmccpfaotquN95.33 Obstructive sleep apnea (adult) (pediatric)L02.818 Cutaneous abscess of other sitesReferral:[facility] [place],YbmqubnL55.01 Morbid (severe) obesity due to excess zkacmppeY72.3 Dietary counseling and bcdewwdrdvcfS38.43 Body mass index (BMI) 50-59.9, adult
--- OUTSIDE RECORDS SUMMARY | 2018-11-16 10:18 | XMS REPORT | Continuity of Care Document ---
:1965 External Reference #:[id number] Author Name Nichelle Way Care Team Providers Name Role Phone Yaya Reed M.D. Primary Care Physician Unavailable Payers Date Identification Numbers Payment Provider Subscriber Effective: 2010 Policy Number: [id number] [place] [facility] Tootie Montoya PayID: [id number] [address] [place] [address] Problems Active Problems Provider Date Chest pain Tony Dejesus M.D., [facility], [facility] Onset: 12/08/2013 Difficulty breathing Tony Dejesus M.D., [facility], [facility] Onset: 06/18/2018 Family History Date Family Member(s) Observation Comments : (age 69 Years) Father due to Brain Cancer Social History Type Date Description Comments Sex Unknown Lives With Alone 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 Tobacco Use Start: Unknown Never Smoked Cigarettes ETOH Use Occasionally consumes alcohol Recreational Drug Use Denies Drug Use Tobacco Use Start: Unknown Patient has never smoked Smoking Status Reviewed: 10/17/18 Patient has never smoked Exercise Type/Frequency Exercises rarely Allergies, Adverse Reactions, Alerts Active Allergies Reaction Severity Comments Date Aleve swollen lips, sob 11/12/2013 Keflex "lips swells up" 11/12/2013 Bactrim Facial swelling, severe rash Severe 06/10/2018 Tape 06/10/2018 Bacitracin angioedema Moderate 06/10/2018 Sulfa Antibiotics 06/10/2018 Contrast Dye 06/10/2018 Medications Active Medications SIG Qnty Indications Ordering Date Provider Nystatin 5cc, swish and 60ml Dipti Marilyn, 08/23/2018 [id number] spit, twice daily MD Suspension Aspirin 1 by mouth every Unknown 325mg Tablets day Dulera 2 puff twice a day Unknown 200-5mcg/Act Aerosol Spiriva Handihaler 2 inhalations Unknown 18mcg every in the Capsules evening Zileuton ER 2 tabs PO daily Unknown 600mg Tablets ER 12HR Vitamin C 1 by mouth every Unknown 500mg Chewtabs day Red Yeast Rice 1 by mouth every Unknown 600mg day Capsules Probiotic Daily 1 by mouth every Unknown Capsules day [place] Allergy 1 tab by mouth Unknown 60mg twice a day as Tablets needed Niacin 1 PO at at bedtime Unknown 100mg Tablets Milk Thistle 1 by mouth every Unknown 200mg day Capsules Diphenhydramine HCL 1 tab 4x daily Unknown 25mg prn for itching Capsules Ferocon 2 capsules by Unknown Capsules mouth once daily Simvastatin 1 by mouth every 90tabs Unknown 80mg Tablets day Metformin HCL 1 by mouth twice a 60tabs Unknown 500mg day Tablets Baclofen take 40 mg PO 3x 90tabs Unknown 20mg Tablets daily prn Proair HFA as needed 1units Unknown 108(90Base) mcg/Act Aerosol Tylenol as needed Unknown 325mg Tablets Furosemide 1 by mouth every Unknown 20mg Tablets day Omeprazole 1 by mouth every Unknown 20mg Capsules day DR Gonzalez 2-Miguel use as directed Unknown 0.3mg/0.3ML Solution Auto-Inject Calcium+ Magnesium +D 1 by mouth daily Unknown 213-267lv-Leci Tablets Centrum Silver 1 by mouth every Unknown Tablets day History Medications Zofran one twice a day as 8tabs Tony Tejada 06/10/2018 - 8mg Tablets needed nausea Sal Dejesus, 06/17/2018 FACC, [facility] Mometasone-Formoterol 2 puffs into lungs Unknown - Inhaler 2xdaily 07/23/2018 Hydrochlorothiazide 1 by mouth every Unknown - 25mg Tablets day 07/23/2018 Aspirin Ec Eli. 1 by mouth Unknown - 325mg Tablets DR every day 09/05/2018 Zyflo 1 by mouth twice Unknown - 600mg Tablets per day 06/17/2018 Sudafed 1 tab by mouth as Unknown - 30mg Tablets needed 06/17/2018 Multivitamin Adult 1 by mouth every Unknown - Tablets day 06/17/2018 Valacyclovir HCL prn for cold sores Unknown - 1gm Tablets 06/17/2018 Januvia 1 by mouth every Unknown - 100mg Tablets day 06/17/2018 Spiriva Handihaler 2 inhalations Unknown - 18mcg Capsules every in the 06/17/2018 morning Levofloxacin 1 by mouth every Unknown - 750mg Tablets day 07/23/2018 Guaifenesin ER prn Unknown - 05/29/2018 Multivitamin Gummies Adults One po daily Unknown - 06/17/2018 Chewtabs Co Q-10 One po daily Unknown - 05/28/2018 Potassium One po daily Unknown - 05/28/2018 Zinc One po daily Unknown - 05/29/2018 Magnesium Unknown - 05/29/2018 Aspirin 1 by mouth every Unknown - 81mg Tablets day 05/29/2018 Niacin 1 by mouth every 30tabs Unknown - 500mg Tablets day 05/28/2018 Nucynta as needed pain 40tabs Unknown - 50mg Tablets 05/28/2018 Medications Administered in Office Medication SIG Qnty Indications Ordering Provider Date Technetium TC 99M Michael Irizarry DO FAC 07/01/2018 Tetrofosmin, Per Unit Dose Up To 40 Millicuries Injection Technetium TC 99M Tony Dejesus M.D., 11/24/2013 Tetrofosmin, Per Unit Dose FACC, [facility]AS[facility] Up To 40 Millicuries Injection Vital Signs Date Vital Result Comment 10/17/2018 2:42pm Height 58.5 inches 4'10.50" Weight 259.50 lb Heart Rate 94 /min BP Systolic Sitting 110 mmHg Rue large cuff BP Diastolic Sitting 70 mmHg Rue large cuff Respiratory Rate 18 /min O2 % BldC Oximetry 97 % On Ra BMI (Body Mass Index) 53.3 kg/m2 09/05/2018 3:06pm Height 58.5 inches 4'10.50" Weight 250.25 lb Heart Rate 96 /min BP Systolic Sitting 88 mmHg Rue large cuff BP Diastolic Sitting 50 mmHg Rue large cuff Respiratory Rate 16 /min O2 % BldC Oximetry 97 % On Ra BMI (Body Mass Index) 51.4 kg/m2 08/23/2018 4:02pm Height 58.5 inches 4'10.50" Weight 254.00 lb Heart Rate 102 /min BP Systolic 135 mmHg BP Diastolic 72 mmHg O2 % BldC Oximetry 96 % BMI (Body Mass Index) 52.2 kg/m2 07/24/2018 11:52am Height 58.5 inches 4'10.50" Weight 255.00 lb with shoes Heart Rate 80 /min BP Systolic Sitting 108 mmHg Lue BP Diastolic Sitting 70 mmHg Lue BP Systolic Standing 110 mmHg Lue BP Diastolic Standing 70 mmHg Lue Respiratory Rate 16 /min BMI (Body Mass Index) 52.4 kg/m2 Ejection Fraction 55-60% echo.07/10/18 06/18/2018 1:36pm Height 58.5 inches 4'10.50" Weight 201.00 lb w/o shoes Heart Rate 110 /min BP Systolic 120 mmHg Lue reg cuff BP Diastolic 70 mmHg Lue reg cuff BP Systolic Sitting 120 mmHg Rue reg cuff BP Diastolic Sitting 65 mmHg Rue reg cuff BP Systolic Standing 115 mmHg Lue reg cuff BP Diastolic Standing 65 mmHg Lue reg cuff Respiratory Rate 18 /min O2 % BldC Oximetry 97 % BMI (Body Mass Index) 41.3 kg/m2 Ejection Fraction 60% 11/21/2013 12/08/2013 1:44pm Height 58.5 inches 4'10.50" Weight 235.00 lb with boots Heart Rate 98 /min BP Systolic Sitting 120 mmHg LA, Lg cuff BP Diastolic Sitting 88 mmHg LA, Lg cuff BP Systolic Standing 114 mmHg LA BP Diastolic Standing 84 mmHg LA Respiratory Rate 18 /min BMI (Body Mass Index) 48.3 kg/m2 Procedures Date Code Description Status 08/24/2018 35100 Sleep Study Unattended,HRT Rate,Oxygen Sat,Resp Completed Effort/Airflow 07/10/2018 49567 ECHO Transthoracic, Real-Time 2D With Doppler And Color Completed Flow 07/10/2018 34635 ECHO Transthoracic, Real-Time 2D With Doppler And Color Completed Flow 07/01/2018 44082 Stress Test Completed 07/01/2018 64294 Myocardial Perfusion Imaging Tomographic (Spect) Multiple Completed Studies 06/18/2018 66552 EKG Tracing & Interpretation Completed 12/08/2013 12258 EKG Tracing & Interpretation Completed 11/24/2013 42168 Stress Test Completed 11/24/2013 81175 Myocardial Perfusion Imaging Tomographic (Spect) Multiple Completed Studies 11/21/2013 54258 ECHO Transthoracic, Real-Time 2D With Doppler And Color Completed Flow 11/12/2013 59520 ECHO Stress Test Incl Perf Contiuous ekg Monitoring W/Phys Completed Superv Encounters Type Date Location Provider Dx Diagnosis Office Visit 09/05/2018 [facility] Michelle G47.33 Obstructive sleep 3:00p [facility]cios apnea (adult) [facility] (pediatric) J44.9 Chronic obstructive pulmonary disease, unspecified Z98.84 Bariatric surgery status Z68.43 Body mass index (BMI) 50-59.9, adult E66.01 Morbid (severe) obesity due to excess calories Office Visit 08/23/2018 2:30p Pulmonology And Dipti R06.02 Shortness of [facility] Marilyn breath [facility] J44.9 Chronic obstructive pulmonary disease, unspecified J45.909 Unspecified asthma, uncomplicated R06.83 Snoring E66.9 Obesity, unspecified Z68.42 Body mass index (BMI) 45.0-49.9, adult Office Visit 07/24/2018 11:45a [facility] Tony Tejada R06.00 Dyspnea , Of Mynor Dejesus M.D., unspecified [facility], [facility] Office Visit 06/18/2018 2:00p [facility] Tony Tejada R06.00 Dyspnea , Of Mynor Dejesus M.D., unspecified [facility]ACC, [facility] Office Visit 12/08/2013 1:30p [facility] Tony Tejada 786.50 Pain Chest Unspec Of Mynor Dejesus M.D., [facility], [facility] Plan of Treatment Future Appointment(s):12/12/2018 3:00 pm - Michelle Turcios NP at [facility]10/17/2018 - Michelle Turcios, AMANDEEPG47.33 Obstructive sleep apnea (adult) (pediatric)Follow up:2 monthsRecommendations: Work on wearing your machine for the full night of sleep. It sounds like getting an extra phone tip tester for the bedroom would help you get to bed earlier and use the machine for longer. If you have any sleepiness while driving you MUST avoid operating a vehicle or machinery. If you have difficulty with your equipment, or need to replace your mask or hoses, please contact your homecare agency. Ifyou have any further questions, please call the [facility] at [phone] Unspecified asthma, tpwiaduubigtcC16.4 Other disorders of lung
--- OUTSIDE RECORDS SUMMARY | 2018-11-16 10:18 | XMS REPORT | Continuity of Care Document ---
:1965 External Reference #:[id number] Author Name JET Vann Address [address] [place] [address] Care Team Providers Name Role Phone Yaya Reed M.D. Primary Care Physician Unavailable Payers Date Identification Numbers Payment Provider Subscriber Effective: Policy Number: [id number] [facility] Tootie Montoya 2007 Healthcare Group Number: [id number] [address] Group Name: [place] [address] PayID: [id number] Problems Active Problems Provider Date Adverse effect of other drugs, medicaments and Tammy Barger M.D. Onset: biological substances, subsequent encounter Uncomplicated severe persistent asthma Tammy Barger M.D. Onset: 10/18/2016 Uncomplicated severe persistent asthma Tammy Barger M.D. Onset: 03/31/2015 Allergic rhinitis due to animals Tammy Barger M.D. Onset: 03/31/2015 Allergy to drug Tammy Barger M.D. Onset: 02/17/2015 Allergic rhinitis Tammy Barger M.D. Onset: 02/17/2015 Allergic rhinitis due to pollen Tammy Barger M.D. Onset: 02/17/2015 Allergic asthma without status asthmaticus Tammy Barger M.D. 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 Home Environment Mattress is 3 years old Home Environment Mattress is encased in an allergy proof case Home Environment Regular Mattress Home Environment Pillows are polyester Home Environment Pillows are not encased in an allergy proof case Home Environment Does not use a dehumidifier Home Environment There are no draperies in the home Home Environment The home is geoff Home Environment The floors are wood Home Environment Uses propane gas heating Home Environment Uses forced air heating Home Environment [place] Home Environment Water Source: Well Smoke-Free Home is smoke-free Tobacco Use Start: Unknown Work is not smoke-free Pets 1 dog present 8 years Pets 2 cats present 8 years Pets Animals 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 in bedroom 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 ETOH Use Rarely consumes alcohol Tobacco Use Start: Unknown Patient has never smoked Recreational Drug Use Denies Drug Use Allergies, Adverse Reactions, Alerts Active Allergies Reaction Severity Comments Date Bactrim Urticaria 02/17/2015 Doxycycline Urticaria 02/17/2015 Aleve Allergic asthma 02/17/2015 Keflex swollen lips 02/17/2015 Bacitracin swollen lips, itchy hands 02/17/2015 Contrast Dye Urticaria 02/17/2015 Ibuprofen Anaphylaxis 03/31/2015 Sulfa Anaphylaxis 10/06/2015 Medications Active Medications SIG Qnty Indications Ordering Date Provider Omeprazole take 1 capsule by 30caps Tammy Barger, 09/26/2018 40mg mouth once daily M.D. Capsules DR first thing on an empty stomach Dulera inhale 2 puffs by 13gm Tammy Barger, 08/29/2018 100-5mcg/Act mouth every morning M.D. Aerosol and evening Tessalon Perles 1 by mouth three 30caps Tiana 05/06/2018 times a day AMELIE Alcaraz-Conor 100mg Capsules Sterile Water For Use as Directed 20units Tammy Barger, 03/18/2018 Injection M.D. Solution Xolair Inject 300 MG 2units Lillian 10/25/2017 150mg Subcutaneously Every CristalRPA-C Solution Rec 4 Weeks. Levalbuterol HCL 1 vial via nebulizer 72ml Tammy Barger, 08/27/2017 q4-6 hours as needed M.D. 0.63mg/3ML for shortness of Nebulizer breath, cough, wheeze Spiriva Respimat 2 puffs once daily 1units Tammy Barger, 06/27/2017 Please load and prime M.D. 1.25mcg/Act Aerosol the inhaler Zileuton ER Take 2 tablets by 120tabs Tammy Barger, 02/23/2017 600mg mouth 2 times daily. M.D. Tablets ER 12HR Saline for nebulizer every 1Box Tammy Barger, 06/01/2016 0.9% 4-6 hours as needed M.D. Solution for inspiration symptoms - to be mixed with albuterol Omeprazole take 1 capsule by 30caps J45.50 Tiana 10/06/2015 40mg mouth once daily AMELIE Alcaraz-Conor Capsules DR first thing on an empty stomach Dulera 2 inhalations am&pm 8.800gm Tammy Barger, 200-5mcg/Act M.D. Aerosol Turmeric twice daily Unknown Capsules Proair HFA inhale 2 puffs by 8.5units Tammy Barger, mouth every 4-6 hours M.D. 108(90Base) mcg/Act as needed for Aerosol cough/wheeze or trouble breathing or 20 minutes prior to activity Luly Root Unknown 550mg Capsules Metaxalone Unknown 800mg Tablets Lasix 1 every other day Unknown 10mg Tablets [place] Allergy 1 by mouth every day Unknown 180mg Tablets Valacyclovir HCL Legrett, MD Leroy 1gm Tablets Nystatin Marilyn, MD Dipti [id number] Suspension Tradjenta Childblanca, 5mg Sal Javier Tablets Red Yeast Rice daily Unknown 600mg Capsules Milk Thistle daily Unknown 200mg Capsules Niacin daily Unknown 500mg Tablets Vitamin C daily Unknown Tablets Multi Complete 1 by mouth every day Unknown Capsules Ondansetron HCL as needed Unknown 8mg Tablets Ferocon daily Unknown Capsules Simvastatin daily at bedtime Unknown 40mg Tablets Epipen 2-Miguel inject 4units Tammy Barger, intramuscularly as M.D. 0.3mg/0.3ML needed for severe Solution allergic reaction. Auto-Inject Metformin HCL am and pm Unknown 500mg Tablets Baclofen as needed Unknown 10mg Tablets Celestone/Cortisone Unknown [id number] 1 cc Injection Medications Administered in Office Medication SIG Qnty Indications Ordering Provider Date Biologic Agent Administration JET Vann 10/24/2018 Injection Biologic Agent Administration Tammy Barger M.D. 09/26/2018 Injection Biologic Agent Administration Tammy Barger M.D. 08/29/2018 Injection Biologic Agent Administration Tammy Barger M.D. 07/19/2018 Injection Biologic Agent Administration AMELIE VannConor 06/21/2018 Injection Celestone/Cortisone Tammy Barger M.D. 05/08/2018 [id number] 1 cc Injection Biologic Agent Administration JET Vann 05/06/2018 Injection Biologic Agent Administration JET Vann 04/08/2018 Injection Biologic Agent Administration JET Vann 03/04/2018 Injection Biologic Agent Administration Tammy Barger M.D. 02/04/2018 Injection Biologic Agent Administration JET Vann 02/04/2018 Injection Biologic Agent Administration Tammy Barger M.D. 01/09/2018 Injection Biologic Agent Administration Tammy Barger M.D. 12/12/2017 Injection Celestone/Cortisone Tammy Barger M.D. 10/24/2017 [id number] 1 cc Injection Celestone/Sergioisone Tammy Barger M.D. 08/29/2017 [id number] 1 cc Injection Celestone/Cortisone Tammy Barger M.D. 06/27/2017 [id number] 1 cc Injection Celestone/Cortisone Tammy Barger M.D. 06/01/2016 [id number] 1 cc Injection Celestone/Cortisone Tammy Barger M.D. 04/07/2016 [id number] 1 cc Injection Celestone/Cortisone Tammy Barger M.D. 02/17/2015 [id number] 1 cc Injection Immunizations CPT Code Status Date Vaccine Lot # 43062 Given Unknown Pneumococcal Vaccine 99500 Given Unknown Influenza Vaccine 52821 Given Unknown Influenza Vaccine 00802 Given Unknown Influenza Vaccine 66429 Given Unknown Influenza Vaccine 20235 Given Unknown Influenza Vaccine 3 Years Old + Vital Signs Date Vital Result Comment 10/24/2018 2:32pm Height 58 inches 4'10" 97 Weight 255.00 lb Weight 115.668 kg Respiratory Rate 22 /min Heart Rate 101 /min O2 % BldC Oximetry 96 % BP Systolic 122 mmHg BP Diastolic 79 mmHg Asthma Control Test 24 BMI (Body Mass Index) 53.3 kg/m2 09/26/2018 2:17pm Height 58 inches 4'10" 97 Weight 258.00 lb Weight 117.029 kg Respiratory Rate 22 /min Heart Rate 92 /min O2 % BldC Oximetry 97 % BP Systolic 110 mmHg BP Diastolic 65 mmHg Asthma Control Test 15 BMI (Body Mass Index) 53.9 kg/m2 08/29/2018 1:42pm Height 58 inches 4'10" 97 Weight 256.00 lb Weight 116.122 kg Respiratory Rate 22 /min Heart Rate 102 /min O2 % BldC Oximetry 99 % BP Systolic 136 mmHg BP Diastolic 80 mmHg Asthma Control Test 13 BMI (Body Mass Index) 53.5 kg/m2 07/19/2018 3:08pm Height 58 inches 97 Weight 257.00 lb Weight 116.575 kg Respiratory Rate 22 /min Heart Rate 100 /min O2 % BldC Oximetry 97 % BP Systolic 110 mmHg BP Diastolic 67 mmHg Asthma Control Test 11 Fractional Exhaled Nitric Oxide 11 BMI (Body Mass Index) 53.7 kg/m2 06/21/2018 3:06pm Height 58 inches 4'10" Weight 252.00 lb Weight 114.307 kg Respiratory Rate 20 /min Heart Rate 101 /min Body Temperature 99.1 F O2 % BldC Oximetry 98 % BP Systolic 104 mmHg BP Diastolic 70 mmHg Asthma Control Test 13 Fractional Exhaled Nitric Oxide 11 BMI (Body Mass Index) 52.7 kg/m2 05/08/2018 3:16pm Height 58 inches 4'10" Weight 250.00 lb Weight 113.400 kg Respiratory Rate 20 /min Heart Rate 112 /min Body Temperature 98.3 F O2 % BldC Oximetry 97 % BP Systolic 122 mmHg BP Diastolic 71 mmHg Asthma Control Test 11 BMI (Body Mass Index) 52.2 kg/m2 05/06/2018 10:31am Height 58 inches 4'10" Weight 250.00 lb patient stated Weight 113.400 kg Respiratory Rate 20 /min Heart Rate 94 /min O2 % BldC Oximetry 98 % BP Systolic 126 mmHg BP Diastolic 70 mmHg Asthma Control Test 11 BMI (Body Mass Index) 52.2 kg/m2 04/08/2018 10:52am Height 58 inches 4'10" Weight 252.00 lb Weight 114.307 kg Respiratory Rate 21 /min Heart Rate 86 /min O2 % BldC Oximetry 98 % BP Systolic 120 mmHg BP Diastolic 72 mmHg Asthma Control Test 14 BMI (Body Mass Index) 52.7 kg/m2 03/04/2018 9:12am Height 58 inches 4'10" Weight 245.00 lb Weight 111.132 kg Respiratory Rate 18 /min Heart Rate 92 /min O2 % BldC Oximetry 98 % BP Systolic 121 mmHg BP Diastolic 75 mmHg Asthma Control Test 19 BMI (Body Mass Index) 51.2 kg/m2 02/04/2018 10:59am Height 58 inches 4'10" Weight 245.00 lb Weight 111.132 kg Respiratory Rate 16 /min Heart Rate 86 /min O2 % BldC Oximetry 97 % BP Systolic 103 mmHg BP Diastolic 69 mmHg Asthma Control Test 20 BMI (Body Mass Index) 51.2 kg/m2 01/09/2018 10:07am Height 58 inches 4'10" Weight 245.00 lb Weight 111.132 kg Respiratory Rate 20 /min Heart Rate 106 /min O2 % BldC Oximetry 96 % BP Systolic 95 mmHg BP Diastolic 55 mmHg Asthma Control Test 22 BMI (Body Mass Index) 51.2 kg/m2 12/12/2017 10:25am Height 58 inches 4'10" Weight 242.00 lb Weight 109.771 kg Respiratory Rate 20 /min Heart Rate 100 /min O2 % BldC Oximetry 99 % BP Systolic 112 mmHg BP Diastolic 83 mmHg Asthma Control Test 22 BMI (Body Mass Index) 50.6 kg/m2 10/24/2017 2:55pm Height 58 inches 4'10" Weight 250.00 lb Weight 113.400 kg Respiratory Rate 23 /min Heart Rate 98 /min O2 % BldC Oximetry 98 % BP Systolic 94 mmHg BP Diastolic 58 mmHg Asthma Control Test 20 Fractional Exhaled Nitric Oxide 9 BMI (Body Mass Index) 52.2 kg/m2 08/29/2017 8:35am Height 58 inches 4'10" Weight 244.00 lb Weight 110.678 kg Respiratory Rate 24 /min Heart Rate 101 /min Body Temperature 97.4 F O2 % BldC Oximetry 98 % BP Systolic 121 mmHg BP Diastolic 69 mmHg Asthma Control Test 15 BMI (Body Mass Index) 51.0 kg/m2 06/27/2017 11:43am Height 58 inches 4'10" Weight 229.00 lb Weight 103.874 kg Respiratory Rate 18 /min Heart Rate 108 /min O2 % BldC Oximetry 97 % BP Systolic 103 mmHg BP Diastolic 62 mmHg Asthma Control Test 18 BMI (Body Mass Index) 47.9 kg/m2 04/25/2017 3:48pm Height 58 inches 4'10" Weight 232.00 lb Weight 105.235 kg Respiratory Rate 20 /min Heart Rate 107 /min O2 % BldC Oximetry 96 % BP Systolic 108 mmHg BP Diastolic 52 mmHg Asthma Control Test 21 BMI (Body Mass Index) 48.5 kg/m2 10/18/2016 11:08am Height 58 inches 4'10" Weight 236.00 lb Weight 107.050 kg Respiratory Rate 18 /min Heart Rate 84 /min O2 % BldC Oximetry 98 % BP Systolic 105 mmHg BP Diastolic 59 mmHg Asthma Control Test 21 BMI (Body Mass Index) 49.3 kg/m2 06/01/2016 4:17pm Height 58 inches 4'10" Weight 242.00 lb Weight 109.771 kg Respiratory Rate 20 /min Heart Rate 89 /min Body Temperature 98.0 F BP Systolic 106 mmHg BP Diastolic 69 mmHg Asthma Control Test 22 BMI (Body Mass Index) 50.6 kg/m2 04/07/2016 10:42am Height 58 inches 4'10" Weight 231.00 lb Weight 104.782 kg Respiratory Rate 20 /min Heart Rate 104 /min O2 % BldC Oximetry 98 % BP Systolic 117 mmHg BP Diastolic 71 mmHg Asthma Control Test 20 BMI (Body Mass Index) 48.3 kg/m2 10/06/2015 3:30pm Height 58 inches 4'10" patient stated Weight 233.00 lb patient stated Weight 105.689 kg Respiratory Rate 20 /min Heart Rate 95 /min O2 % BldC Oximetry 98 % BP Systolic 114 mmHg BP Diastolic 83 mmHg Asthma Control Test 24 BMI (Body Mass Index) 48.7 kg/m2 03/31/2015 2:06pm Height 58 inches 4'10" patient stated Weight 233.00 lb patient stated Weight 105.689 kg Respiratory Rate 16 /min Heart Rate 98 /min O2 % BldC Oximetry 98 % BP Systolic 131 mmHg BP Diastolic 58 mmHg Asthma Control Test 24 BMI (Body Mass Index) 48.7 kg/m2 02/17/2015 2:08pm Height 58 inches 4'10" patient stated Weight 233.00 lb patient stated Weight 105.689 kg Respiratory Rate 16 /min Heart Rate 108 /min O2 % BldC Oximetry 98 % BP Systolic 112 mmHg BP Diastolic 66 mmHg Asthma Control Test 20 BMI (Body Mass Index) 48.7 kg/m2 Procedures Date Code Description Status 10/24/2018 37719 Biologic Agent Administration Completed 09/26/2018 13921 Biologic Agent Administration Completed 09/26/2018 86645 Pre PFT Completed 08/29/2018 18494 Biologic Agent Administration Completed 08/29/2018 09667 Pulmonary Function Test Completed 07/19/2018 10105 Biologic Agent Administration Completed 07/19/2018 43012 Nitric Oxide Gas Determination Completed 07/19/2018 12341 Ippb Completed 07/19/2018 05039 Pre PFT Completed 06/21/2018 47467 Pre PFT Completed 06/21/2018 84911 Ippb Completed 06/21/2018 53823 Nitric Oxide Gas Determination Completed 06/21/2018 11635 Biologic Agent Administration Completed 05/08/2018 16665 Ippb Completed 05/06/2018 24989 Biologic Agent Administration Completed 05/06/2018 57296 Ippb Completed 04/08/2018 45592 Biologic Agent Administration Completed 03/04/2018 84776 Biologic Agent Administration Completed 03/04/2018 34392 Pre PFT Completed 02/04/2018 90976 Ippb Completed 02/04/2018 76337 Ippb Completed 02/04/2018 48327 Biologic Agent Administration Completed 02/04/2018 46234 Biologic Agent Administration Completed 01/09/2018 98140 Biologic Agent Administration Completed 01/09/2018 28898 Ippb Completed 01/09/2018 69575 Pre PFT Completed 12/12/2017 23791 Biologic Agent Administration Completed 12/12/2017 62499 Ippb Completed 12/12/2017 15162 Pre PFT Completed 10/24/2017 77087 Nitric Oxide Gas Determination Completed 10/24/2017 73700 Pre PFT Completed 08/29/2017 27575 Ippb Completed 06/27/2017 92808 Ippb Completed 04/25/2017 84113 Nitric Oxide Gas Determination Completed 04/25/2017 49266 Pre PFT Completed 10/18/2016 48319 Pre PFT Completed 06/01/2016 18676 Pre PFT Completed 04/07/2016 33290 Ippb Completed 04/07/2016 57588 Pre PFT Completed 10/06/2015 65397 Pre PFT Completed 03/31/2015 04551 Skin Test Scratch # Of Units ____ Completed 03/31/2015 71830 Ippb Completed 03/31/2015 62940 Pre PFT Completed 02/17/2015 25018 Pulmonary Function Test Completed Encounters Type Date Location Provider Dx Diagnosis Office Visit 05/08/2018 Valencia Fisher.50 Severe persistent 3:00p M.D. asthma, uncomplicated J45.50 Severe persistent asthma, uncomplicated J30.2 Other seasonal allergic rhinitis J30.1 Allergic rhinitis due to pollen T50.995D Adverse effect of drug/meds/biol subst, subs Office Visit 10/24/2017 3:20p Valencia Fisher.50 Severe persistent M.D. asthma, uncomplicated J30.1 Allergic rhinitis due to pollen T50.995D Adverse effect of drug/meds/biol subst, subs J30.2 Other seasonal allergic rhinitis Office Visit 08/29/2017 8:40a Valencia Fisher.50 Severe persistent M.D. asthma, uncomplicated J30.1 Allergic rhinitis due to pollen J30.81 Allergic rhinitis due to animal (cat) (dog) hair and dander J30.2 Other seasonal allergic rhinitis Office Visit 06/27/2017 11:40a Geovanna Fisher45.50 Severe persistent M.D. asthma, uncomplicated J30.1 Allergic rhinitis due to pollen J30.81 Allergic rhinitis due to animal (cat) (dog) hair and dander T50.995D Adverse effect of drug/meds/biol subst, subs Office Visit 04/25/2017 4:00p Geovanna Fisher45.50 Severe persistent M.D. asthma, uncomplicated J30.1 Allergic rhinitis due to pollen J30.81 Allergic rhinitis due to animal (cat) (dog) hair and dander T50.995D Adverse effect of drug/meds/biol subst, subs Office Visit 10/18/2016 11:00a Geovanna Fisher45.50 Severe persistent M.D. asthma, uncomplicated J30.1 Allergic rhinitis due to pollen J30.81 Allergic rhinitis due to animal (cat) (dog) hair and dander J30.2 Other seasonal allergic rhinitis Z68.42 Body mass index (BMI) 45.0-49.9, adult Office Visit 06/01/2016 4:20p Valencia Fisher.Sravani Severe persistent M.D. asthma, uncomplicated J30.1 Allergic rhinitis due to pollen J30.81 Allergic rhinitis due to animal (cat) (dog) hair and dander J30.2 Other seasonal allergic rhinitis Z68.43 Body mass index (BMI) 50-59.9 , adult Office Visit 04/07/2016 11:00a Valencia Fisher.Sravani Severe persistent M.D. asthma, uncomplicated J45.50 Severe persistent asthma, uncomplicated J30.1 Allergic rhinitis due to pollen J30.81 Allergic rhinitis due to animal (cat) (dog) hair and dander J30.2 Other seasonal allergic rhinitis Z68.42 Body mass index (BMI) 45.0-49.9, adult Office Visit 10/06/2015 3:20p Valencia Fisher.50 Severe persistent M.D. asthma, uncomplicated J30.1 Allergic rhinitis due to pollen J30.81 Allergic rhinitis due to animal (cat) (dog) hair and dander J30.2 Other seasonal allergic rhinitis Z68.42 Body mass index (BMI) 45.0-49.9, adult Office Visit 03/31/2015 3:20p Chase Barger J45.50 Severe persistent M.D. asthma, uncomplicated J30.1 Allergic rhinitis due to pollen J30.81 Allergic rhinitis due to animal (cat) (dog) hair and dander J30.2 Other seasonal allergic rhinitis Z68.42 Body mass index (BMI) 45.0-49.9, adult Office Visit 02/17/2015 2:00p Chase Barger M.D. 493.00 Asthma Extrinsic Unspecified 477.0 Rhinitis Allergic Due To Pollen 477.8 Rhinitis Allergic Due To Other Allergen 995.27 Other Drug Allergy V85.42 Body Mass Index 45.0-49.9, Adult Plan of Treatment Future Appointment(s):11/21/2018 2:40 pm - JET Vann at [id number] - AMELIE Vann-CJ45.50 Severe persistent asthma, vsytsxccggfyrP32.2 Other seasonal allergic ehxbbhhgP08.1 Allergic rhinitis due to svbgssU55.81 Allergic rhinitis due to animal (cat) (dog) hair and danderRecommendations:Continue all medications as prescribed.Refrain from wearing perfumes/scented colognes while visitingour office. We discussed that she needs to use the Spiriva 2 puff daily OK for Xolair today Carrythe Auvi-Q or Epipen Continue the medications as you have: Dulera 100/5 2 puffs twice daily Continue the Spiriva 2 inhalation once every day or every other day as tolerated. So use the Proair/ Albuterol/ or nebulizer every 4-6 hours as needed for cough/wheeze/tightness/trouble breathing
[2018-11-16 10:19] VITALS: BP 118/66
--- NOTE | 2018-11-16 10:28 | UC ---
Respiratory Complaint HPI - HPI Summary HPI Summary: Patient presents to urgent care reporting 4-5 days of progressive head congestion sore throat postnasal drip and cough. Patient states she went to her primary Sunday for her sore throat sole was likely viral but if she didn' t improve was to call back yesterday. Patient states she was dizzy yesterday and forgot to call. Patient states she uses BiPAP at night that is humidified. Patient states she's had a lot of drainage from her nose that's yellowing getting thicker. No fevers but states sometimes she feels warm. No nausea vomiting. Decreased appetite. No sick contacts. Patient states she's noticed since yesterday she wheezes with expiration. Patient states Hoss[place] yesterday she noticed some increasing pain in her right ear. Patient's medications reviewed this visit. - History of Current Complaint Chief Complaint: UCRespiratory Stated Complaint: COUGH Time Seen by Provider: 11/16/18 10:16 Hx Obtained From: Patient Onset/Duration: Gradual Onset Timing: Constant Severity Initially: Mild Severity Currently: Mild Pain Intensity: 7 Pain Scale Used: 0-10 Numeric - Allergies/Home Medications Allergies/Adverse Reactions: Allergies Allergy/AdvReac Type Severity Reaction Status Date / Time cephalexin [From Keflex] Allergy unk Verified 11/16/18 10:21 doxycycline Allergy unk Verified 11/16/18 10:21 naproxen Allergy Unknown Verified 11/16/18 10:21 Reaction Details Sulfa (Sulfonamide Allergy Swelling Verified 11/16/18 10:21 Antibiotics) Of Face,Lips,& Throat sulfamethoxazole Allergy Swelling Verified 11/16/18 10:21 [From Bactrim] trimethoprim [From Bactrim] Allergy Swelling Verified 11/16/18 10:21 IV CONTRAST Allergy Hives Uncoded 11/16/18 10:21 Home Medications: Home Medications Furosemide 1 tab PO DAILY 11/16/18 [History Confirmed 11/16/18] Linagliptin (NF) [Tradjenta (NF)] 1 tab PO DAILY 11/16/18 [History Confirmed ] Omalizumab (NF) [Xolair (NF)] 1 syr IM 11/16/18 [History] Omeprazole 1 tab PO DAILY 11/16/18 [History Confirmed 11/16/18] Simvastatin (NF) [Zocor (NF)] 1 tab PO DAILY 11/16/18 [History Confirmed ] Zileuton [Zileuton ER] 1 tab PO DAILY 11/16/18 [History Confirmed 11/16/18] glipiZIDE [Glipizide] 1 tab PO DAILY 11/16/18 [History Confirmed 11/16/18] metFORMIN* [Glucophage 500 MG TAB *] 1,000 mg PO 0800,1700 11/16/18 [History Confirmed 11/16/18] PMH/Surg Hx/FS Hx/Imm Hx Previously Healthy: Yes Cardiovascular History: Hypertension Respiratory History: Other - dirk - Surgical History Surgical History: Yes Surgery Procedure, Year, and Place: tonsils cysts gastric byass skin removal cataracts bilat knee replacements - Family History Known Family History: Positive: Non-Contributory - Social History Lives: With Family Alcohol Use: Occasionally Substance Use Type: None Smoking Status (MU): Never Smoked Tobacco Review of Systems All Other Systems Reviewed And Are Negative: Yes Constitutional: Positive: Fatigue, Other - decreaesd appetite Eyes: Positive: Negative ENT: Positive: Sore Throat, Ear Ache, Nasal Discharge, Sinus Congestion, Sinus Pain/Tenderness Respiratory: Positive: Cough, Other - wheeze Cardiovascular: Positive: Negative Gastrointestinal: Positive: Negative Genitourinary: Positive: Negative Motor: Positive: Negative Neurovascular: Positive: Negative Musculoskeletal: Positive: Negative Neurological: Positive: Negative Psychological: Positive: Negative Physical Exam - Summary Physical Exam Summary: Vital Signs Reviewed: Yes A+Ox3, no distress, intermittent coarse cough Eyes: Conjunctiva Clear, ELVIS. EOM intact and full ENT: Hearing grossly normal fluid right ear turbiantes inflammed + PND mmoist, uvula midline, no exudate, + erythema Neck: Positive: Supple Respiratory: Positive: No respiratory distress, No accessory muscle use + bs throughout exp wheeze [place] intermittent coarse cough Cardiovascular: RRR nl s1, s2 no m/r CBT <2 sec abd soft + BS nt/nd no guarding, no distension Musculoskeletal Exam: BACA x 4 without difficulty Strength Intact, ROM Intact Neurological: Positive: Alert, + sensation throughout Psychological: Positive: Normal Response To Family Skin: Positive: no rash, no ecchymosis Triage Information Reviewed: Yes Vital Signs: Initial Vital Signs Temp 97.7 F 11/16/18 10:16 Pulse 100 11/16/18 10:16 Resp 18 11/16/18 10:16 BP 118/66 11/16/18 10:16 Pulse Ox 98 11/16/18 10:16 Re-Evaluation - Re-Evaluation First Eval Comment: PT breathing improved following neb Pt has albuterol and Advair at home. PT taking allergra - D. reviewed secretion precaution. clean CPAP. Abx - previous success with Biaxin or levaquin - no know pcn allergy but keflex causes facial and lip swelling. pred. pt has appt with PCP on THur - strict return precaution if no improvement. agreement and comfort with plan Respiratory Course/Dx - Course Course Of Treatment: Patient presents to urgent care with 5 days of progressive head congestion cough sore throat and progressive right ear pain. Patient also having a wheeze. No nausea vomiting. Patient is a secretions are getting thicker and more organized in color. Patient's her PCP on Sunday with a virus told to follow up on Sunday if symptoms progress. Patient states she got busy and forgot to call until the office was closed. On exam vital signs are stable. Patient does have otitis externa worse on the right. Patient with inflamed boggy turbinates with postnasal drip. Patient also with a coarse cough and expiratory wheeze. We'll check for rapid flu as well as give a DuoNeb and reassessed. Patient comfortable agreement with plan. - Differential Dx/Diagnosis Provider Diagnosis: Rhinosinusitis, Bronchitis Discharge - Sign-Out/Discharge Documenting (check all that apply): Patient Departure All imaging exams completed and their final reports reviewed: No Studies - Discharge Plan Condition: Stable Disposition: HOME Prescriptions: Clarithromycin TAB* [Biaxin 500 MG TAB*] 500 mg PO BID #20 tab predniSONE TAB* [Deltasone TAB*] 50 mg PO DAILY #5 tab Patient Education Materials: Acute Bronchitis (ED), Rhinosinusitis (ED) Referrals: Yaya Reed MD [Primary Care Provider] - Additional Instructions: -Take antibiotics and prednisone exactly as prescribed until gone -continue with your inhalers and decongestant medications as previously prescribed - cleanse your CPAP machine frequently -- These infections are spread by secretions - do NOT share eating or drinking utensils - clean items you share with other people such as cell phones, computer mouse, TV remote, computer tablets,etc.. Once you have been antibiotics for 2 days, change your toothbrush and your pillowcase. Keep your appointment with your doctor as scheduled on . Call your doctor, return here or go to the emergency department with any questions or concerns - Billing Disposition and Condition Condition: STABLE Disposition: Home
[2018-11-16] MEDS ORDERED: Albuterol/Ipratropium NEB.SOL* Albuterol 2.5 MG/Ipratropium 0.5 MG 3 ML INH ONE (10:37)
== END 2018-11-16 11:15 | disposition home or self-care (01) ==
LOC: UCEAST 10:12
DX: J32.9 Chronic sinusitis, unspecified (principal); J40 Bronchitis, not specified as acute or chronic; I10 Essential (primary) hypertension
CPT/HCPCS: 87651; 99212; A9270-GY; G0463